=== PATIENT | female | born 1935 | race Caucasian/White ===

== ENCOUNTER 2023-08-28 10:40 | Emergency (ER) | payer MEDICARE, OTHER, SELFPAY ==
[2023-08-28 10:42] VITALS: BP 131/75
[2023-08-28] MEDS: AUGMENTIN 875 MG/125 MG 1 TABLET PO (11:42)
--- NOTE | 2023-08-28 11:42 | ED.GENMED ---
History of Present Illness
General
Chief Complaint: Musculo-Skeletal Complaint
Source: patient and spouse
Time Seen by Provider: 08/28/23 10:58
Travel History
Have you had any contact with someone who has COVID-19?: No
Do you have any symptoms of coronavirus? Fever > 100 degrees, chills, cough, shortness of breath, sore throat, loss of taste or smell, muscle aches, or headache?: No
History of Present Illness
History of Present Illness:
88-year-old female with past medical history of previous DVT, bowel obstruction and GERD presenting to the emergency department for 2 separate concerns. Patient's first concern is that while on a cruise ship about a week and a half ago patient fell
landing on her right shoulder. Patient had an x-ray done on the crew ship and was told she had a fracture of her shoulder but patient is unable to provide me with any further information about where the fracture was or what treatments were supposed
to be done afterwards notes that there was supposed to get an x-ray printout but this was never done. They did not make an appointment with an orthopedic doctor and decided to come here due to continued pain. Patient was given a sling but
states she does not like wearing the sling secondary concern of upon getting home patient was bit on the right anterior lower leg by her house. The cat is up-to-date on his vaccinations. Patient's states he cleaned the wound out some
erythema still persists. Patient has no other concerns.
Past History
Past History
ED Past Medical History: GERD, Hypercholesterolemia and Other (Osteoarthritis, DVT, bowel obstruction, hiatal hernia, Anxiety); Negative Asthma, HTN or NIDDM
ED Past Surgical History: Gynecological (D&C and tubal ligation) and Other (Bilateral cataract surgery)
Social History
Tobacco: Former smoker
Alcohol: None
Drug: None
Personal:
Living: with family
Employment: Retired
Family History
Family History: Negative Diabetes, Hypertension, Early CAD, Asthma or Cancer
Review of Systems
Review of Systems
All Other Systems: ROS reviewed and negative except as documented in HPI and ROS
Phy Exam
Physical Exam
Physical Exam:
GENERAL: Alert , in no apparent distress
EYE: conjunctiva clear
Head: Normocephalic atraumatic
NECK: Supple,
ENT: mmm.
LUNGS: no acute respiratory distress
NEUROLOGICAL: Alert and oriented
SKIN: Warm and dry, right anterior lower leg has 2 small puncture wounds with surrounding erythema. Mildly warm to the touch and tender. No streaking or lymphangitis.
MUSCULOSKELETAL: Right upper extremity: No obvious deformity, erythema, edema, ecchymosis, abrasions or lacerations. Unable to assess range of motion of the right shoulder secondary to pain. Tenderness over the humeral head on palpation.
Remainder of extremities within normal limits, neurovascularly intact and has normal range of motion.
PSYCH: Normal and appropriate interaction.
Scores
Heart Failure Risk
Heart Failure Risk Score: Not Applicable
Heart Score for Chest Pain Patients
STEMI patient?: Not applicable
Withdrawal Assessment of Alcohol
Withdrawal Assessment Completed?: Not applicable
Course
Orders/Labs/Results
Orders:
Orders
08/28/23 11:29
Amoxicillin 875 mg/Clav 125 mg [Augmentin 875 mg/125 mg] 1 tablet PO NOW STA
CR Shoulder, Trauma - Right Urgent
Comment:
Reason For Exam: fall, reportedly known fx
Vital Signs
Initial and Last Documented VS:
Initial Vital Signs
Temp Pulse Resp BP Pulse Ox
98.1 F 76 16 131/75 98
08/28/23 10:42 08/28/23 10:42 08/28/23 10:42 08/28/23 10:42 08/28/23 10:42
Last Documented Vital Signs
Temp Pulse Resp BP Pulse Ox
98.1 F 76 16 131/75 98
08/28/23 10:42 08/28/23 10:42 08/28/23 10:42 08/28/23 10:42 08/28/23 10:42
MDM/Problems Addressed
Differential Diagnosis Includes:
Proximal humerus fracture, clavicle fracture, scapular fracture, dislocation
Right lower extremity cellulitis from cat bite
MDM/Problems Addressed:
88-year-old female presenting emergency department for 2 separate concerns of right shoulder injury/known suspected fracture as well as cat bite to the right lower extremity resulting in mild cellulitis. Patient and are unaware as to what
was fractured in the right shoulder and do not have the x-rays from her cruise ship so we will reobtain x-ray to better evaluate. Encourage patient that she needs to wear the sling as long as she is up but does not need to use this while sleeping
or showering. Will provide patient and with information for outpatient orthopedist to follow-up with. Will also start patient on Augmentin for cat bite. I will notify patient's primary care provider to help expedite outpatient follow-up
for this week.
*Radiology
Radiology exam reviewed: preliminary read by ED provider (No fracture, degenerative changes, question calcific tendinitis)
*Pulse Oximetry
Patient hypoxic: no
*Critical Care Note
Total Time (30-74mins, 75-104mins- exclusive of procedures): Not Applicable
Patient Management
Discussion with other providers: PCP
Escalation/DeEscalation of care consider admission/obs:
Patient's x-ray was fracture. There were degenerative changes throughout and I do question calcific tendinitis as well. Advised patient remain in sling for comfort. Information for orthopedics was provided. I also encourage close follow-up with
primary care provider as well as send primary care provider message via [employer] to help expedite outpatient follow-up. Prescription for Augmentin sent to patient's pharmacy. Aware of return precautions emergency department. Stable for
discharge home.
ED Attending Note
-
Portions of this chart may have been created with voice recognition software.� Occasional wrong word or��sound alike� substitutions may have occurred due to the inherent limitations of voice recognition software.
Discharge Plan
Departure
Patient Disposition: Home (Routine Discharge)
Date of Disposition: 08/28/23
Time of Disposition: 12:08
Patient with high blood pressure during this ER visit?: No
Discharge Problem:
Right shoulder pain, Cellulitis of right anterior lower leg, Cat bite
Instructions: Animal Bites (DC), Shoulder Pain (DC)
Prescriptions:
New
amoxicillin-pot clavulanate 875-125 mg tablet
1 tab PO BID 7 Days Qty: 14 0RF
No Action
sertraline 100 MG tablet
50 mg PO DAILY
aspirin [Aspir-Low] 81 MG tablet,delayed release (DR/EC)
81 mg PO BID
etodolac [Lodine] 400 MG tablet
400 mg PO DAILY
calcium carbonate-vitamin D3 [Oyster Shell Calcium-Vit D3] 500 MG tablet
500 mg PO DAILY
[id number]-epa-fish oil [Bolckow 3] 1 EACH capsule
1 ea PO BID
rivaroxaban [Xarelto] 15 MG tablet
15 mg PO BID Qty: 42 0RF
Referrals:
Marv Mariscal MD [Family Provider] -
Interventions
Interventions:
*ED COVID-19 Vaccine History Last Done: 08/28/23 10:42
*Nursing Disposition Last Done: 08/28/23 12:25
ED-Musculoskeletal Assessment Last Done: 08/28/23 11:59
Discharge Date and Time
Discharge Date/Time: 08/28/23 12:26
== END 2023-08-28 12:26 | disposition home or self-care (01) ==
LOC: EMR 10:40
PROVIDERS: EMERGENCY PHYSICIAN Emergency Medicine; FAMILY PHYSICIAN Family Medicine
DX: M25.511 Pain in right shoulder (principal); L03.115 Cellulitis of right lower limb; W55.01XA Bitten by cat, initial encounter; K21.9 Gastro-esophageal reflux disease without esophagitis; E78.00 Pure hypercholesterolemia, unspecified; M19.90 Unspecified osteoarthritis, unspecified site; F41.9 Anxiety disorder, unspecified; Z86.718 Personal history of other venous thrombosis and embolism; Z87.891 Personal history of nicotine dependence; Z98.51 Tubal ligation status
CPT/HCPCS: 99283; 73030

== ENCOUNTER 2023-09-02 18:38 | Inpatient (IN) | payer MEDICARE, OTHER, SELFPAY ==
[2023-09-02 16:17] VITALS: BP 147/72
--- NOTE | 2023-09-02 17:36 | ED.SKININJ ---
HPI-Injury
General
Chief Complaint: Bite
Source: patient
Exam Limitations: none
Time Seen by Provider: 09/02/23 17:03
Nursing documentation reviewed up to this point in time: agreed with
Travel History
Have you had any contact with someone who has COVID-19?: No
Do you have any symptoms of coronavirus? Fever > 100 degrees, chills, cough, shortness of breath, sore throat, loss of taste or smell, muscle aches, or headache?: No
History of Present Illness-Injury
Is this injury a work related problem?: No
Is pt an associate of [facility]?: No
Initial Injury comments:
88-year-old female with past medical history of DVT currently on Xarelto, smoking history presenting to the emergency department today 5 days after getting bit by her cat on her right lower extremity initially started on Augmentin at the time
initially seen have some improvement but over the past 24 hours so she is seen worsening increased pain redness swelling warmth. Denies any systemic symptoms fevers nausea vomiting.
Past History
Past History
ED Past Medical History: GERD, Hypercholesterolemia and Other (Osteoarthritis, DVT, bowel obstruction, hiatal hernia, Anxiety); Negative Asthma, HTN or NIDDM
ED Past Surgical History: Gynecological (D&C and tubal ligation) and Other (Bilateral cataract surgery)
Social History
Tobacco: Former smoker
Alcohol: None
Drug: None
Personal:
Living: with family
Employment: Retired
Family History
Family History: Negative Diabetes, Hypertension, Early CAD, Asthma or Cancer
Review of Systems
Review of Systems
Allergies reviewed?: Yes
All Other Systems: ROS reviewed and negative except as documented in HPI and ROS
Phy Exam
Physical Exam
Physical Exam:
GENERAL: Alert , in no apparent distress
EYE: pupils equal and reactive
NECK: Supple, no significant adenopathy.
ENT: o/p clr, mmm.
CARDIAC: Regular rate and rhythm .
LUNGS: Clear breath sounds bilaterally, no acute respiratory distress, no wheezes/rales/rhonchi
ABDOMEN: Soft, without focal tenderness, no r/g, no cvat
NEUROLOGICAL: Alert and oriented, no focal neuro deficits
SKIN: Redness swelling warmth to the right lower extremity to the distal anterior gee roughly 10 cm in diameter tender to palpation throughout warm and dry, skin intact.
MUSCULOSKELETAL: No edema, well perfused.
PSYCH: Normal and appropriate interaction.
Course
Orders/Labs/Results
Orders:
Orders
09/02/23 Dinner
Regular
At Your Request: Full Participation
Does patient need a safe tray?: No
Reason for opting out of Cigarette Package Examiner order writing: Provider Decision
09/02/23 17:27
MetroNIDAZOLE 500 MG/100 ML [Flagyl 500 mg] 100 ml IV NOW
09/02/23 17:47
CBC/With Diff [Complete Blood Count/With Diff] Urgent
CMP [Comprehensive Metabolic Panel] Urgent
Blood Culture Q30M
[place] Source: Blood/Venous
Specimen Description:
09/02/23 17:57
Blood Culture Q30M
[place] Source: Blood/Venous
Specimen Description:
09/02/23 18:23
Admit/Transfer Patient As Directed
Co-Sign Provider:
Level of Care: Inpatient admission
Assign to:: Medical/Surgical
Physician / Group: tika del cid
Diagnosis: Worsening cat bite infection
Reason for Hospitalization: The cat is up-to-date on his vaccinations.
Expected length of stay greater than two midnights?: Yes
ELOS- Estimated Length of Stay in days: 2
I certify the patient meets the requirements for IP care: Yes
09/02/23 18:25
Code Status As Directed
Resuscitation Status: Full Code
09/02/23 20:15
Acetaminophen [Tylenol] 1,000 mg PO Q6HPRN PRN
Ampicillin/Sulbactam 3 G [Unasyn] 3 gm 0.9% Sodium Chloride 100 ml [Nss] 100 ml IV Q6H
Ondansetron Injectable [Zofran] 4 mg IV Q6HPRN PRN
Tramadol HCl [Ultram] 50 mg PO BIDPRN PRN
cycloSPORINE [Restasis 0.05% Ophthalmic Emulsion] 1 drops BOTH EYES Q12H
09/02/23 20:15
SURGICAL CONSULT Routine
Consulting Provider: David Patel
Was physician already notified: Yes
Activity As Directed
Activity Level: Ambulate
Vital Signs As Directed
Frequency: Per unit guidelines
Ot Eval And Treat Routine
Pt Eval And Treat Routine
Activity Level: Ambulate
09/02/23 22:00
Alprazolam [Xanax] 0.5 mg PO HS
09/03/23 06:00
Basic Metabolic Panel IN AM
Complete Blood Count/No Diff IN AM
Magnesium IN AM
09/03/23 08:00
Bupropion(24Hr)Extended Releas [WELLBUTRIN XL (24 hour extended release)] 150 mg PO DAILY
Calcium Carbonate/Vitamin D3 [Oscal 500 + D] 500 mg PO DAILY
Cyanocobalamin [Vitamin B-12] 1,000 mcg PO DAILY
Famotidine [Pepcid] 20 mg PO DAILY
Multivitamin [Theragran] 1 tablet PO DAILY
Sertraline HCl [Zoloft] 100 mg PO DAILY
Vit C/Vit E/Lutein/Min/Jackson-3 [Ocuvite Softgel] 1 cap PO DAILY
mirabegron [Myrbetriq] 50 mg PO DAILY
09/03/23 18:00
Rivaroxaban [Xarelto] 20 mg PO QPM
09/04/23 06:00
Basic Metabolic Panel IN AM
Complete Blood Count/No Diff IN AM
09/05/23 06:00
Basic Metabolic Panel IN AM
Complete Blood Count/No Diff IN AM
Abnormal Lab Results
09/02/23
17:47
RBC 3.98 L 10^6/uL
(4.20-5.40)
Hct 36.3 L %
(37.0-47.0)
MCH 31.9 H pg
(27.0-31.0)
ALT 40 H U/L
(0-35)
Alkaline Phosphatase 150 H U/L
(38-126)
09/02/23 17:47
09/02/23 17:47
Vital Signs
Initial and Last Documented VS:
Initial Vital Signs
Temp Pulse Resp BP Pulse Ox
97.6 F 64 20 147/72 98
09/02/23 16:17 09/02/23 16:17 09/02/23 16:17 09/02/23 16:17 09/02/23 16:17
Last Documented Vital Signs
Temp Pulse Resp BP Pulse Ox
97.6 F 64 20 140/78 97
09/02/23 16:17 09/02/23 16:17 09/02/23 16:17 09/02/23 18:40 09/02/23 18:40
MDM/Problems Addressed
MDM/Problems Addressed:
88-year-old female presenting to the emergency department today with concerns of worsening cellulitis to the right lower extremity at site of cat bite 5 days ago. Has been on but having worsening symptoms over the past 24 hours. Concern for failed
outpatient management plan for IV antibiotics and admission for monitoring. No evidence of systemic illness at this point.
*Critical Care Note
Total Time (30-74mins, 75-104mins- exclusive of procedures): Not Applicable
ED Attending Note
-
Portions of this chart may have been created with voice recognition software.� Occasional wrong word or��sound alike� substitutions may have occurred due to the inherent limitations of voice recognition software.
Discharge Plan
Departure
Patient Disposition: Admit
Date of Disposition: 09/02/23
Time of Disposition: 18:30
Admit to: Med/Surg
Admit to doctor: Tineo
Presentation/result/management discussed w/ accepting MD/DO: Hospitalist
Patient with high blood pressure during this ER visit?: No
Condition: Good
Covid-19: Not Applicable
Discharge Problem:
Cellulitis of leg
Interventions
Interventions:
*Risk Screen - Suicide Last Done: 09/02/23 17:30
*General Assessment Last Done: 09/02/23 17:30
ED- Fall Risk Assessment Last Done: 09/02/23 20:41
*Nursing Disposition Last Done: 09/02/23 20:41
ED-Skin Assessment Last Done: 09/02/23 17:30
Discharge Date and Time
Discharge Date/Time: 09/02/23 20:42
[2023-09-02] MEDS: FLAGYL 500 MG 100 IV (18:00)
[2023-09-02 18:06] LABS: % Basophils 0.5 % (0-2); % Eosinophils 0.9 % (0-6); % Immature Granulocytes 0.2 % (0-0.5); % Lymphocytes 27.3 % (20.5-51.1); % Monocytes 7.9 % (1.7-9.3); % Neutrophils 63.2 % (42.2-75.2); Absolute Eosinophils 0.1 10^3/uL (0-0.7); Absolute Lymphocytes 1.5 10^3/uL (1.2-3.4); Absolute Monocytes 0.4 10^3/uL (0.1-0.6); Absolute Neutrophils 3.5 10^3/uL (1.4-6.5); Hematocrit 36.3 % (37.0-47.0); Hemoglobin 12.7 g/dL (12.0-16.0); Mean Corpuscular Hgb 31.9 pg (27.0-31.0); Mean Corpuscular Volume 91.2 fL (81.0-99.0); Mean Platelet Volume 9.7 fL (7.4-10.4); Nucleated Red Blood Cells % 0 %; Platelet Count 330 10^3/uL (130-400); Red Blood Cell Count 3.98 10^6/uL (4.20-5.40); Red Cell Dist. Width 13.2 % (11.5-14.5); White Blood Cell Count 5.6 10^3/uL (4.8-10.8)
--- NOTE | 2023-09-02 18:08 | HPS.HSE ---
Family Physician
-
Family Physician: Marv Mariscal
Chief Complaint
-
Worsening cat bite infection
History of Present Illness
88-year-old female with a past medical history of GERD, esophageal stricture, hiatal hernia, anxiety/depression, and DVT on Xarelto presents with worsening cat bite infection on her right leg despite taking Augmentin for 2 days. Patient reports
that she was bitten by cat 7 days ago, and started having redness/swelling/pain on her right anterior gee 6 days ago. She went to the ER 5 days ago, and was prescribed Augmentin. Despite taking Augmentin, the erythema/edema has worsened. She
denies fever, denies chills. No chest pain, no shortness of breath. No nausea, no vomiting. No dysuria, no black or bloody stools.
Patient was on a cruise ship recently, and injured her right shoulder. Right shoulder x-rays done 08/28/2023 was negative for fracture or dislocation. Does show degenerative changes and soft tissue calcification suggestive of tendinitis or bursitis
versus small avulsion fracture off the greater tuberosity of the proximal right humerus.
Medical History
Past Medical History
Past Medical History: Reports Other
Additional Past Medical History:
Esophageal stricture, GERD, Hypercholesterolemia, Osteoarthritis, DVT, bowel obstruction, hiatal hernia, Anxiety
Past Surgical History: Reports Other
Additional Past Surgical History:
D&C, tubal ligation, Bilateral cataract surgery
Social History
Tobacco: Former Smoker
Alcohol: None
Drug: None
Personal:
Living: With Family
Family History
Family History: Not pertinent
Allergies / Home Medications
Allergies reflects when Allergies were last updated in [facility].
Home Medications with original date entered in [facility]
Allergy/Medication List:
Allergies
Allergy/AdvReac Type Severity Reaction Status Date / Time
codeine Allergy Nausea Verified 09/02/23 16:17
aspirin AdvReac upsets her Verified 09/02/23 16:17
stomach
Home Medications Table - record
�Medication �Instructions �Recorded �Confirmed
calcium carbonate 500 mg-vitamin 500 mg PO DAILY 05/03/12 09/02/23
D3 5 mcg (200 unit) tablet (Oyster
Shell Calcium-Vitamin D3)
sertraline 100 mg tablet 100 mg PO DAILY 05/03/12 09/02/23
amoxicillin 875 mg-potassium 1 tab PO BID 7 days #14 tabs 08/28/23 09/02/23
clavulanate 125 mg tablet
alprazolam 0.5 mg tablet (Xanax) 0.5 mg PO HS 09/02/23 09/02/23
bupropion HCl 150 mg 24 hr tablet, 150 mg PO DAILY 09/02/23 09/02/23
extended release (Wellbutrin XL)
cyanocobalamin (vitamin B-12) 1,000 mcg PO DAILY 09/02/23 09/02/23
1,000 mcg tablet
cyclosporine 0.05 % eye drops in a 1 drp BOTH EYES Q12H 09/02/23 09/02/23
dropperette (Restasis)
famotidine 20 mg tablet (Pepcid) 20 mg PO DAILY 09/02/23 09/02/23
mirabegron 50 mg tablet,extended 50 mg PO DAILY 09/02/23 09/02/23
release 24 hr (Myrbetriq)
rivaroxaban 20 mg tablet (Xarelto) 20 mg PO DAILY 09/02/23 09/02/23
therapeutic multivitamin 1 tab PO DAILY 09/02/23 09/02/23
vitamins A,C,H-fmwy-nlrzld 2,148 1 tab PO DAILY 09/02/23 09/02/23
mcg-113 mg-45 mg-17.4 mg tablet
(PreserVision AREDS)
Review of Systems
-
A 12 point ROS was completed and negative except as noted: Yes
Physical Exam
Vital Signs
Vital Signs
Temp Pulse Resp BP Pulse Ox
97.6 F 64 20 147/72 98
09/02/23 16:17 09/02/23 16:17 09/02/23 16:17 09/02/23 16:17 09/02/23 16:17
Physical Exam
General: No Apparent Distress
HEENT: NormoCephalic, Anicteric and Moist mucous membranes
Respiratory: Clear
Cardiac: S1/S2
GI: Soft, Non Tender, Non Distended and Normal Bowel Sounds
Musculoskeletal: Edema, Right Lower Extremity
Skin: Other (Anterior gee at the right lower extremity is erythematous with a small wound, tender to the touch, with associated edema)
Neuro: Awake, Alert and Oriented
Psych: Calm
Laboratory Results
-
09/02/23 17:47
Impression/Plan
-
HPI: 88-year-old female with a past medical history of GERD, esophageal stricture, hiatal hernia, anxiety/depression, and DVT on Xarelto presents with worsening cat bite infection on her right leg despite taking Augmentin for 2 days. Patient
reports that she was bitten by cat 7 days ago, and started having redness/swelling/pain on her right anterior gee 6 days ago. She went to the ER 5 days ago, and was prescribed Augmentin. Despite taking Augmentin, the erythema/edema has worsened.
She denies fever, denies chills. No chest pain, no shortness of breath. No nausea, no vomiting. No dysuria, no black or bloody stools.
Patient was on a cruise ship recently, and injured her right shoulder. Right shoulder x-rays done 08/28/2023 was negative for fracture or dislocation. Does show degenerative changes and soft tissue calcification suggestive of tendinitis or bursitis
versus small avulsion fracture off the greater tuberosity of the proximal right humerus.
#Worsening cat bite infection on right lower extremity
Failed 2 days of Augmentin
Status post Rocephin and Flagyl in the ER
Treat with IV Unasyn, Tylenol prn
#Recent right shoulder infection
Right shoulder x-rays done 08/28/2023 was negative for fracture or dislocation.
Does show degenerative changes and soft tissue calcification suggestive of tendinitis or bursitis versus small avulsion fracture off the greater tuberosity of the proximal right humerus.
Patient reports being told to wear a sling, but she does not like it
Consult PT/OT
#History of DVT
Continue Xarelto
#Gastroesophageal reflux disease
Continue PPI, Pepcid
#Anxiety/depression
Continue SSRI, Xanax, Wellbutrin
DVT prophylaxis�Xarelto
Full code
[2023-09-02 18:20] LABS: ALT (SGPT) 40 U/L (0-35); AST (SGOT) 31 U/L (14-36); Albumin 4.3 g/dl (3.5-5.0); Alkaline Phosphatase 150 U/L (38-126); Blood Urea Nitrogen 16 mg/dl (7-17); Carbon Dioxide 25 mmol/L (22-30); Chloride 100 mmol/L (98-107); Glucose 93 mg/dl (70-99); Potassium 4.4 mmol/L (3.5-5.1); Sodium 135 mmol/L (135-145); Total Bilirubin 0.5 mg/dl (0.2-1.3); Total Protein 7.1 g/dl (6.3-8.2); eGFR > 60.00
[2023-09-02 18:40] VITALS: BP 140/78
[2023-09-02] MEDS: ROCEPHIN 2000 MG IV (19:59)
[2023-09-02 20:25] VITALS: BP 140/71; BMI 29.6
--- NOTE | 2023-09-02 20:25 | PTCARENOTE ---
Patient received from the ER via stretcher. Patient helped into the room by staff. AAOx3, VSS. Patient complaining of no pain from the cat bite on RLE. RLE red/flushed and edematous. No current drainage. Patient oriented to the room and made
comfortable in bed. Instructed to ring for assistance.
[2023-09-02] MEDS: XANAX 0.5 MG PO (21:29)
[2023-09-02] MEDS: RESTASIS 0.05% OPHTHALMIC EMULSION 1 DROPS BOTH EYES (21:29)
[2023-09-02] MEDS: UNASYN IV (23:33)
[2023-09-02 23:55] VITALS: BP 117/56
[2023-09-03 03:30] VITALS: BP 120/54
[2023-09-03] MEDS: UNASYN IV ×3 (05:33→17:50)
[2023-09-03 07:20] VITALS: BP 129/70
--- NOTE | 2023-09-03 07:55 | W.PN.HOSP.TC ---
Today's Communication/Plan
-
see bold
Assessment / Plan
Assessment / Plan
HPI: 88-year-old female with a past medical history of GERD, esophageal stricture, hiatal hernia, anxiety/depression, and DVT on Xarelto presents with worsening cat bite infection on her right leg despite taking Augmentin for 2 days. Patient
reports that she was bitten by cat 7 days ago, and started having redness/swelling/pain on her right anterior gee 6 days ago. She went to the ER 5 days ago, and was prescribed Augmentin. Despite taking Augmentin, the erythema/edema has worsened.
She denies fever, denies chills. No chest pain, no shortness of breath. No nausea, no vomiting. No dysuria, no black or bloody stools.
Patient was on a cruise ship recently, and injured her right shoulder. Right shoulder x-rays done 08/28/2023 was negative for fracture or dislocation. Does show degenerative changes and soft tissue calcification suggestive of tendinitis or bursitis
versus small avulsion fracture off the greater tuberosity of the proximal right humerus.
#Worsening cat bite infection on right lower extremity
Failed 2 days of Augmentin
Status post Rocephin and Flagyl in the ER
Questionable area of fluctuance noted, general surgery consulted to see if there is anything to drain
Continue IV Unasyn, Tylenol prn
#Recent right shoulder infection
Right shoulder x-rays done 08/28/2023 was negative for fracture or dislocation.
Does show degenerative changes and soft tissue calcification suggestive of tendinitis or bursitis versus small avulsion fracture off the greater tuberosity of the proximal right humerus.
Patient reports being told to wear a sling, but she does not like it
Consult PT/OT
#History of DVT
Continue Xarelto
#Gastroesophageal reflux disease
Continue PPI, Pepcid
#Anxiety/depression
Continue SSRI, Xanax, Wellbutrin
DVT prophylaxis�Xarelto
Full code
Physical Exam
General: No acute distress
HEENT: Normocephalic, Atraumatic, EOMI, MMM
Respiratory: Clear to Auscultation bilaterally
Cardiac: Normal S1/S2, Regular Rate and Rhythm
GI: Soft, Nontender, Nondistended, Normal Bowel Sounds
Extremities: No Clubbing, Cyanosis, or Edema
Neuro: Nonfocal/Grossly Intact
Psych: Calm, Cooperative
Derm:
Right anterior lower gee with erythema and edema, improved from prior
Questionable area of fluctuance noted
Anticipated Discharge: 24 - 48 hours
Subjective/Interval History
-
Date of Service: September 03, 2023
Right lower extremity redness and pain improved. No fever, no vomiting.
Objective Data
-
Labs:
Laboratory Results
09/03/23
06:44
WBC Pending
Hgb Pending
Hct Pending
Plt Count Pending
Sodium Pending
Potassium Pending
Chloride Pending
Carbon Dioxide Pending
BUN Pending
Creatinine Pending
Glucose Pending
Calcium Pending
Vital Signs:
Vital Signs
Temp Pulse Resp BP Pulse Ox
97.8 F 66 16 120/54 93
09/03/23 03:30 09/03/23 03:30 09/03/23 03:30 09/03/23 03:30 09/03/23 03:30
I&O
09/02/23 09/03/23 09/04/23
06:59 06:59 06:59
Intake Total 580 / 580
Balance 580 / 580
[2023-09-03 08:20] LABS: Hematocrit 37.8 % (37.0-47.0); Hemoglobin 12.4 g/dL (12.0-16.0); Mean Corp Hgb Conc. 32.8 g/dL (33.0-37.0); Mean Corpuscular Hgb 31.3 pg (27.0-31.0); Mean Corpuscular Volume 95.5 fL (81.0-99.0); Mean Platelet Volume 9.9 fL (7.4-10.4); Platelet Count 316 10^3/uL (130-400); Red Blood Cell Count 3.96 10^6/uL (4.20-5.40); Red Cell Dist. Width 13.2 % (11.5-14.5); White Blood Cell Count 4.9 10^3/uL (4.8-10.8)
[2023-09-03 08:29] LABS: Blood Urea Nitrogen 11 mg/dl (7-17); Calcium 9.4 mg/dl (8.4-10.2); Carbon Dioxide 27 mmol/L (22-30); Chloride 104 mmol/L (98-107); Estimated Creatinine Clearance 43 ml/min; Glucose 90 mg/dl (70-99); Magnesium 2.1 mg/dl (1.6-2.3); Potassium 4.4 mmol/L (3.5-5.1); Sodium 136 mmol/L (135-145); eGFR > 60.00
[2023-09-03] MEDS: MYRBETRIQ EXTENDED RELEASE 50 MG PO (08:54)
[2023-09-03] MEDS: OSCAL 500 + D 500 MG PO (08:54)
[2023-09-03] MEDS: OCUVITE SOFTGEL 1 CAP PO (08:54)
[2023-09-03] MEDS: WELLBUTRIN XL (24 hour extended release) 150 MG PO (08:54)
[2023-09-03] MEDS: THERAGRAN 1 TABLET PO (08:55)
[2023-09-03] MEDS: RESTASIS 0.05% OPHTHALMIC EMULSION 1 DROPS BOTH EYES ×2 (08:55→20:21)
[2023-09-03] MEDS: PEPCID 20 MG PO (08:55)
[2023-09-03] MEDS: ZOLOFT 100 MG PO (08:55)
[2023-09-03] MEDS: VITAMIN B-12 1000 MCG PO (08:55)
[2023-09-03] MEDS: TYLENOL 1000 MG PO (09:25)
[2023-09-03 09:53] VITALS: PULSE 73; O2SAT 97
[2023-09-03 10:47] VITALS: BP 109/64; PULSE 74
--- NOTE | 2023-09-03 13:57 | CON.GS ---
Addendum entered and electronically signed by David Patel MD 09/03/23 14:13:
I saw and examined the patient.
The [employer]'s note was reviewed and I agree with the note.
Comment: 88F with localized mild soft tissue infection after cat bite. Failed outpt abx. Today feels improved. There is erythema on exam. There is no fluctuance or drainage. No indication for surgical intervention, rec abx tx. Pls call with ?s
Original Note:
Consultation
-
Date/Time Consultation Requested: 09/02/232014
Requesting Provider: Do
Medical History
-
Chief Complaint: erythema at cat bite
History of Present Illness:
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 She presented to the ED on 08/28/23 a few
days later as erythema was noted. She was provided with a prescription for Augmentin but notes no improvement and presented again for evaluation. She was admitted for IV antibiotics. The original site of the bite has a very small area of
slough/necrotic tissue with surrounding erythema and edema. There is no palpable fluctuance or drainage noted. She denies fevers or chills. She has no leukocytosis.
Past Medical History
Past Medical History: GERD and Other (DVT on Xarelto, sbo, hiatal hernia, esophageal stricture)
Past Surgical History: Gynecological (d&c, tubal ligation) and Other (cataracts)
Social History
Tobacco: Former Smoker
Alcohol: None
Personal:
Living: With Family
Family History
Family History: Reviewed & Not Pertinent
Allergies / Home Medications
Allergy/AdvReac Type Severity Reaction Status Date / Time
codeine Allergy Nausea Verified 09/02/23 16:17
aspirin AdvReac upsets her Verified 09/02/23 16:17
stomach
�Medication �Instructions �Recorded �Confirmed �Type
calcium carbonate 500 mg-vitamin 500 mg PO DAILY 05/03/12 09/02/23 History
D3 5 mcg (200 unit) tablet (Oyster
Shell Calcium-Vitamin D3)
sertraline 100 mg tablet 100 mg PO DAILY 05/03/12 09/02/23 History
amoxicillin 875 mg-potassium 1 tab PO BID 7 days #14 tabs 08/28/23 09/02/23 Rx
clavulanate 125 mg tablet
alprazolam 0.5 mg tablet (Xanax) 0.5 mg PO HS 09/02/23 09/02/23 History
bupropion HCl 150 mg 24 hr tablet, 150 mg PO DAILY 09/02/23 09/02/23 History
extended release (Wellbutrin XL)
cyanocobalamin (vitamin B-12) 1,000 mcg PO DAILY 09/02/23 09/02/23 History
1,000 mcg tablet
cyclosporine 0.05 % eye drops in a 1 drp BOTH EYES Q12H 09/02/23 09/02/23 History
dropperette (Restasis)
famotidine 20 mg tablet (Pepcid) 20 mg PO DAILY 09/02/23 09/02/23 History
mirabegron 50 mg tablet,extended 50 mg PO DAILY 09/02/23 09/02/23 History
release 24 hr (Myrbetriq)
rivaroxaban 20 mg tablet (Xarelto) 20 mg PO DAILY 09/02/23 09/02/23 History
therapeutic multivitamin 1 tab PO DAILY 09/02/23 09/02/23 History
vitamins A,C,Q-bfle-ycrquk 2,148 1 tab PO DAILY 09/02/23 09/02/23 History
mcg-113 mg-45 mg-17.4 mg tablet
(PreserVision AREDS)
Review of Systems
-
History Source: Patient
All other systems: Negative unless noted
A 10 point review of systems was completed, and was negative except as per HPI.
Physical Exam
Vital Signs
Temp Pulse Resp BP Pulse Ox
97.8 F 72 16 129/70 97
09/03/23 07:20 09/03/23 07:20 09/03/23 07:20 09/03/23 07:20 09/03/23 10:40
09/02/23 09/03/23 09/04/23
06:59 06:59 06:59
Actual Weight 75.835 kg
Body Mass Index (BMI) 29.6
Lab Results
09/03/23 06:44
09/03/23 06:44
WBC 4.9 10^3/uL (4.8-10.8) 09/03/23 06:44
Hgb 12.4 g/dL (12.0-16.0) 09/03/23 06:44
Hct 37.8 % (37.0-47.0) 09/03/23 06:44
Plt Count 316 10^3/uL (130-400) 09/03/23 06:44
Abs Immat Gran (auto) 0.0 10^3/uL (0-0.05) 09/02/23 17:47
Neutrophils % 63.2 % (42.2-75.2) 09/02/23 17:47
Physical Exam
General: Well Developed and No Apparent Distress
HEENT: Normocephalic and Moist Mucous Membranes
Respiratory: Non Labored Respirations
GI: Soft, Non Tender and Non Distended
Skin: Warm and Other (right gee with very small area of slough/necrotic tissue with surrounding erythema and edema)
Neuro: Awake, Alert and AO x 3
Psych: Calm
Data Reviewed
-
Labs: Labs Reviewed by me, Discussed with Physician and Discussed with Patient
Old Records: Reviewed
Assessment / Plan
-
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 The bite occurred over a week ago with subsequent erythema. She was prescribed Augmentin on 08/27 but notes not much benefit. Admitted for IV
antibiotics. The original site of the bite has a very small area of slough/necrotic tissue with surrounding erythema and edema. There is no palpable fluctuance or drainage noted. She denies fevers or chills. She has no leukocytosis. Blood cx
pending. There is some discomfort to the site.
No plans for surgical intervention, no palpable abscess present
Continue abx and nonoperative management as per primary team
Surgery to sign off, please call with questions or concerns
[2023-09-03 15:20] VITALS: BP 125/69
--- NOTE | 2023-09-03 15:21 | CM ---
Met with patient at the bedside; initial assessment completed
Pharmacy verified: [facility], [facility]
Patient reported that she lives with her in a split level home; 0 steps to enter; 6 steps between floors; powder room on 1st floor; 2nd Floor bath has tub w/shower; planning to install grab bars
PLOF: patient reports that she is independent with ambulation, ADLs and stairs; uses railings on the steps; goes to outpatient PT for shoulder injury; no longer driving
DME: none
SNF/Rehab/Home Health utilization history: none
Transportation: will provide ride home
Plan: discharge to home when medically stable. PT recommended home therapy; patient is agreeable; no agency preference; referral submitted to [facility]
[2023-09-03] MEDS: XARELTO 20 MG PO (17:51)
[2023-09-03] MEDS: XANAX 0.5 MG PO (21:29)
[2023-09-03 23:21] VITALS: BP 125/64
[2023-09-04] MEDS: UNASYN IV ×5 (00:11→23:20)
[2023-09-04] MEDS: TYLENOL 1000 MG PO ×2 (05:46→20:01)
[2023-09-04 08:17] LABS: Hematocrit 35.5 % (37.0-47.0); Hemoglobin 11.7 g/dL (12.0-16.0); Mean Corpuscular Volume 94.2 fL (81.0-99.0); Mean Platelet Volume 9.9 fL (7.4-10.4); Platelet Count 287 10^3/uL (130-400); Red Blood Cell Count 3.77 10^6/uL (4.20-5.40); Red Cell Dist. Width 13.2 % (11.5-14.5); White Blood Cell Count 5.3 10^3/uL (4.8-10.8)
[2023-09-04 08:31] VITALS: BP 117/67
[2023-09-04] MEDS: OSCAL 500 + D 500 MG PO (08:36)
[2023-09-04] MEDS: OCUVITE SOFTGEL 1 CAP PO (08:36)
[2023-09-04] MEDS: MYRBETRIQ EXTENDED RELEASE 50 MG PO (08:36)
[2023-09-04] MEDS: VITAMIN B-12 1000 MCG PO (08:37)
[2023-09-04] MEDS: WELLBUTRIN XL (24 hour extended release) 150 MG PO (08:37)
[2023-09-04] MEDS: PEPCID 20 MG PO (08:37)
[2023-09-04] MEDS: THERAGRAN 1 TABLET PO (08:37)
[2023-09-04] MEDS: RESTASIS 0.05% OPHTHALMIC EMULSION 1 DROPS BOTH EYES ×2 (08:37→19:54)
[2023-09-04] MEDS: ZOLOFT 100 MG PO (08:37)
--- NOTE | 2023-09-04 08:49 | W.PN.HOSP.TC ---
Today's Communication/Plan
-
Likely can be discharged tomorrow
Assessment / Plan
Assessment / Plan
HPI: 88-year-old female with a past medical history of GERD, esophageal stricture, hiatal hernia, anxiety/depression, and DVT on Xarelto presents with worsening cat bite infection on her right leg despite taking Augmentin for 2 days. Patient
reports that she was bitten by cat 7 days ago, and started having redness/swelling/pain on her right anterior gee 6 days ago. She went to the ER 5 days ago, and was prescribed Augmentin. Despite taking Augmentin, the erythema/edema has worsened.
She denies fever, denies chills. No chest pain, no shortness of breath. No nausea, no vomiting. No dysuria, no black or bloody stools.
Patient was on a cruise ship recently, and injured her right shoulder. Right shoulder x-rays done 08/28/2023 was negative for fracture or dislocation. Does show degenerative changes and soft tissue calcification suggestive of tendinitis or bursitis
versus small avulsion fracture off the greater tuberosity of the proximal right humerus.
#Worsening cat bite infection on right lower extremity
Failed 2 days of Augmentin
Status post Rocephin and Flagyl in the ER
Appreciate general surgery input, nothing to drain
Improving on IV Unasyn, Tylenol prn
Likely can be discharged tomorrow on augmentin with continued improvement
#Recent right shoulder infection
Right shoulder x-rays done 08/28/2023 was negative for fracture or dislocation.
Does show degenerative changes and soft tissue calcification suggestive of tendinitis or bursitis versus small avulsion fracture off the greater tuberosity of the proximal right humerus.
Patient reports being told to wear a sling, but she does not like it
PT/OT rec HH
#History of DVT
Continue Xarelto
#Gastroesophageal reflux disease
Continue PPI, Pepcid
#Anxiety/depression
Continue SSRI, Xanax, Wellbutrin
DVT prophylaxis�Xarelto
Full code
Total time spent to see the patient on the floor, examine the patient, review data and lab results, discuss treatment plan with patient, nursing staff around 35 minutes.
Physical Exam
General: No acute distress
HEENT: Normocephalic, Atraumatic, EOMI, MMM
Respiratory: Clear to Auscultation bilaterally
Cardiac: Normal S1/S2, Regular Rate and Rhythm
GI: Soft, Nontender, Nondistended, Normal Bowel Sounds
Extremities: No Clubbing, Cyanosis, or Edema
Neuro: Nonfocal/Grossly Intact
Psych: Calm, Cooperative
Derm:
Right anterior lower gee with erythema and edema, improved from prior
Anticipated Discharge: Within 24 hours
Subjective/Interval History
-
Date of Service: September 04, 2023
Denies nausea, vomiting. No chest pain, no shortness of breath. No fever. Right lower extremity leg pain continues to improve.
Objective Data
-
Labs:
Laboratory Results
09/04/23
07:29
WBC 5.3
Hgb 11.7 L
Hct 35.5 L
Plt Count 287
Vital Signs:
Vital Signs
Temp Pulse Resp BP Pulse Ox
97.7 F 71 18 117/67 95
09/04/23 08:31 09/04/23 08:31 09/04/23 08:31 09/04/23 08:31 09/04/23 08:31
I&O
09/03/23 09/04/23 09/05/23
06:59 06:59 06:59
Intake Total 580 / 580 1295 / 1295
Balance 580 / 580 1295 / 1295
[2023-09-04] MEDS: FLUSH (NSS) 1 FLUSH IV ×2 (12:13→17:50)
[2023-09-04 15:48] VITALS: BP 134/73
--- NOTE | 2023-09-04 15:54 | PTCARENOTE ---
Pt AAO x3, QUIJANO well, OOB to BR/OOB in chair; wilmar well. VSS. On room air- pulse ox 96%, no SOB noted. Abd soft, rounded, wilmar PO well. Rt lower leg reddened/sl tender; small scabbed areas intact. Voiding in BR without difficulty. Resting
comfortably at present, no c/o. Will continue to monitor.
[2023-09-04] MEDS: XARELTO 20 MG PO (17:49)
[2023-09-04] MEDS: XANAX 0.5 MG PO (21:53)
[2023-09-04 23:28] VITALS: BP 115/59
[2023-09-05] MEDS: UNASYN IV (05:49)
[2023-09-05 06:08] LABS: Hematocrit 35.2 % (37.0-47.0); Hemoglobin 11.7 g/dL (12.0-16.0); Mean Corp Hgb Conc. 33.2 g/dL (33.0-37.0); Mean Corpuscular Hgb 31.5 pg (27.0-31.0); Mean Corpuscular Volume 94.9 fL (81.0-99.0); Platelet Count 291 10^3/uL (130-400); Red Blood Cell Count 3.71 10^6/uL (4.20-5.40); Red Cell Dist. Width 13.3 % (11.5-14.5); White Blood Cell Count 5.4 10^3/uL (4.8-10.8)
--- NOTE | 2023-09-05 06:53 | W.PN.HOSP.TC ---
Addendum entered and electronically signed by Teodoro Mccarthy MD 09/06/23 09:50:
RLE Cellulitis due to cat bite wound, present on admission resolving
Addendum entered and electronically signed by Teodoro Mccarthy MD 09/05/23 12:07:
Correction to documentation
#Recent Right Shoulder Infection should read recent right shoulder trauma evaluated in ED 08/27 fracture/dislocation ruled out
patient has outpatient orthopedic appointment, recommended to keep
Original Note:
Today's Communication/Plan
-
discharge
Assessment / Plan
Assessment / Plan
HPI: 88-year-old female with a past medical history of GERD, esophageal stricture, hiatal hernia, anxiety/depression, and DVT on Xarelto presents with worsening cat bite infection on her right leg despite taking Augmentin for 2 days. Patient
reports that she was bitten by cat 7 days ago, and started having redness/swelling/pain on her right anterior gee 6 days ago. She went to the ER 5 days ago, and was prescribed Augmentin. Despite taking Augmentin, the erythema/edema has worsened.
She denies fever, denies chills. No chest pain, no shortness of breath. No nausea, no vomiting. No dysuria, no black or bloody stools.
Patient was on a cruise ship recently, and injured her right shoulder. Right shoulder x-rays done 08/28/2023 was negative for fracture or dislocation. Does show degenerative changes and soft tissue calcification suggestive of tendinitis or bursitis
versus small avulsion fracture off the greater tuberosity of the proximal right humerus.
#Worsening cat bite infection on right lower extremity
Failed 2 days of Augmentin
Status post Rocephin and Flagyl in the ER
Appreciate general surgery input, nothing to drain
Improved on IV Unasyn, Tylenol prn, completed 2 days inpatient
Medically stable, discharging on 7 more days of Augmentin
#Recent right shoulder infection
Right shoulder x-rays done 08/28/2023 was negative for fracture or dislocation.
Does show degenerative changes and soft tissue calcification suggestive of tendinitis or bursitis versus small avulsion fracture off the greater tuberosity of the proximal right humerus.
Patient reports being told to wear a sling, but she does not like it
PT/OT rec HH
#History of DVT
Continue Xarelto
#Gastroesophageal reflux disease
Continue PPI, Pepcid
#Anxiety/depression
Continue SSRI, Xanax, Wellbutrin
DVT prophylaxis�Xarelto
Full code
discussed with patient and her
Total Time Preparing Discharge __45 minutes including examination of the patient, summary of the hospital stay, instructions for continuing care to all relevant caregivers; and preparation of discharge records, prescriptions, and referral
forms if necessary.
Physical Exam
General: No acute distress
HEENT: Normocephalic, Atraumatic, EOMI, MMM
Respiratory: Clear to Auscultation bilaterally
Cardiac: Normal S1/S2, Regular Rate and Rhythm
GI: Soft, Nontender, Nondistended, Normal Bowel Sounds
Extremities: No Clubbing, Cyanosis, or Edema
Neuro: Nonfocal/Grossly Intact
Psych: Calm, Cooperative
Derm:
Right anterior lower gee with erythema and edema, improved from prior, small puss expressed from wound
Anticipated Discharge: Today
Subjective/Interval History
-
Date of Service: September 05, 2023
Seen and examined at bedside in no acute distress sitting up comfortably in bed with present during evaluation. Reports significant improvement in right lower ext wound, decreased erythema swelling, small amount of pus expressed from wound.
Patient overall reports feeling well, eager to go home.
Objective Data
-
Labs:
Laboratory Results
09/05/23
05:28
WBC 5.4
Hgb 11.7 L
Hct 35.2 L
Plt Count 291
Vital Signs:
Vital Signs
Temp Pulse Resp BP Pulse Ox
98.2 F 72 17 115/59 93
09/04/23 23:28 09/04/23 23:28 09/04/23 23:28 09/04/23 23:28 09/04/23 23:28
I&O
09/03/23 09/04/23 09/05/23
06:59 06:59 06:59
Intake Total 580 / 580 1295 / 1295 1440 / 1440
Balance 580 / 580 1295 / 1295 1440 / 1440
[2023-09-05 07:05] VITALS: BP 113/92
[2023-09-05] MEDS: TYLENOL 1000 MG PO (08:29)
[2023-09-05] MEDS: WELLBUTRIN XL (24 hour extended release) 150 MG PO (08:29)
[2023-09-05] MEDS: RESTASIS 0.05% OPHTHALMIC EMULSION 1 DROPS BOTH EYES (08:30)
[2023-09-05] MEDS: PEPCID 20 MG PO (08:30)
[2023-09-05] MEDS: ZOLOFT 100 MG PO (08:30)
[2023-09-05] MEDS: VITAMIN B-12 1000 MCG PO (08:30)
[2023-09-05] MEDS: MYRBETRIQ EXTENDED RELEASE 50 MG PO (08:30)
[2023-09-05] MEDS: OCUVITE SOFTGEL 1 CAP PO (08:30)
[2023-09-05] MEDS: OSCAL 500 + D 500 MG PO (08:30)
[2023-09-05] MEDS: THERAGRAN 1 TABLET PO (08:30)
--- NOTE | 2023-09-05 12:07 | W.DCSUMMARY ---
Discharge Summary
Discharge Data
Date of Admission: 09/02/23
Date of Discharge: 09/05/23
-
Pending Results: Yes
Additional Pending Results:
official Culture results
Hospital Course
88F GERD, esophageal stricture, hiatal hernia, anxiety/depression, and DVT on Xarelto p/w worsening cat bite infection on her right leg despite taking Augmentin for 2 days. Patient reports that she was bitten by cat 7 days ago, and started having
redness/swelling/pain on her right anterior gee 6 days ago. She went to the ER 5 days ago, and was prescribed Augmentin. Despite taking Augmentin, the erythema/edema has worsened. She denied fever, chills, chest pain, shortness of breath nausea,
vomiting, dysuria, black or bloody stools. Patient was on a cruise ship recently, and injured her right shoulder. Right shoulder x-rays done 08/28/2023 was negative for fracture or dislocation. Noted degenerative changes and soft tissue
calcification suggestive of tendinitis or bursitis versus small avulsion fracture off the greater tuberosity of the proximal right humerus. Worsening cat bite infection on right lower extremity, empiric Rocephin and Flagyl given in ED. surgery
evaluated noted nothing to drain. Improved on IV Unasyn, Tylenol prn, completed 2 days inpatient, on discharge patient was transitioned back to Augmentin to complete 7 more days. Medically stable, patient was discharged home with home services and
outpatient follow up recommendations.
Discharge Plan
-
Patient Disposition: Home with Home Care
Discharge Diagnosis/Procedures: Infected Cat Bite, Right Shoulder Pain
Condition: Fair
Diet: Regular
Activity: As tolerated
Driving Restrictions: As prior to admission
Bathing Restrictions: None
Blood Work: Please repeat CBC and CMP with primary care provider in 1 week of discharge
Other Services: VN, PT and OT
Activity Restrictions/Additional Instructions:
Please follow up with your primary care provider in 1 week of discharge and continue orthopedic follow up right shoulder pain.
Augmentin has been prescribed for 7 more days to continue through September 11, treatment for cat bite infection.
Please take medications as prescribed/recommended and follow up with primary care provider and/or other healthcare provider involved in your care for further adjustment to your medication regimen as necessary.
Instructions: Animal Bites (DC)
Referrals:
Marv Mariscal MD [Family Provider] - in one week
Prescriptions:
Continued
sertraline 100 MG tablet
100 mg PO DAILY
calcium carbonate-vitamin D3 [Oyster Shell Calcium-Vit D3] 500 MG tablet
500 mg PO DAILY
Xarelto 20 mg Tablet
20 mg PO DAILY
cyanocobalamin (vitamin B-12) 1,000 mcg Tablet
1,000 mcg PO DAILY
therapeutic multivitamin Tablet
1 tab PO DAILY
alprazolam [Xanax] 0.5 mg Tablet
0.5 mg PO HS
famotidine [Pepcid] 20 mg Tablet
20 mg PO DAILY
cyclosporine [Restasis] 0.05 % Dropperette
1 drp BOTH EYES Q12H
bupropion HCl [Wellbutrin XL] 150 mg Tablet Extended Release 24 Hr
150 mg PO DAILY
PreserVision AREDS 2,148 mcg-113 mg-45 mg-17.4mg Tablet
1 tab PO DAILY
Myrbetriq 50 mg Tablet Extended Release 24 Hr
50 mg PO DAILY
amoxicillin-pot clavulanate 875-125 mg tablet
1 tab PO BID 7 Days Qty: 14 0RF
Rx Instructions:
continue through September 11Enma then stop
Discharge Orders:
Discharge Patient (As Directed); Ordered 09/05/23
Ordered By: Teodoro Mccarthy
Discharge Date and Time
Discharge Date/Time: 09/05/23 12:59
Print Language: PORTUGUESE
--- NOTE | 2023-09-05 12:09 | CM ---
CM reviewed chart and noted dc order
Bedside meeting with pt and spouse
Plan remains home with [facility]
IMM verbally reviewed- copy provided
VN order on chart
[facility]/Maryjane aware of dc
Discharge Disposition- home with [facility]- spouse transport
[2023-09-05 12:24] VITALS: BP 135/73
--- NOTE | 2023-09-05 15:04 | VNURNOTE ---
Home Health Liaison spoke with patient and spouse by phone at 1500 to discuss [facility] nurse/therapy, visits, schedule and homebound status. Patient is agreeable and understands that visits at home will be 2-3 x per week to assess and teach medical
management.
Patient is aware that [facility] will contact them for start of care in 1-2 days after discharge from .
[facility] referral completed in [facility].
--- NOTE | 2023-09-05 15:47 | PN.CDI ---
CDI
- -
CDI:
Physician Documentation Request
Admit Date: 09/02/23 18:38
Dear Doctor Shari,
Clinical Indicators:
The diagnosis of cellulitis was documented on 09/01 in ED report, but is not noted in subsequent documentation.
09/02 Surgery consult, 'The original site of the bite has a very small area of slough/necrotic tissue with surrounding erythema and edema.'
09/04 PN, 'Reports significant improvement in right lower ext wound, decreased erythema swelling'
09/01- 09/04 Unasyn IV given; Augmentin ordered on discharge.
Please clarify the following:
RLE Cellulitis was present on admission and is now resolved.
RLE Cellulitis was ruled out
Other, please specify
Use of terms such as suspected, likely, concern for, or probable (associated with a specific diagnosis that is being evaluated, monitored, or treated as if it exists) are acceptable and can be coded in the inpatient setting, when documented at the
time of discharge.
Thank you,
JASS Nino RN
CDI Specialist
available via tiger text
Please use your independent medical judgment in providing your response.
== END 2023-09-05 12:59 | disposition home health service (06) | DRG 605 ==
LOC: 4 EAST ACU 18:38
PROVIDERS: Physician Assistant; ADMITTING PHYSICIAN Family Medicine; ATTENDING PHYSICIAN Internal Medicine; CONSULT PHYSICIAN Surgery; EMERGENCY PHYSICIAN Emergency Medicine; FAMILY PHYSICIAN Family Medicine
DX: S81.851A Open bite, right lower leg, initial encounter (principal); L03.115 Cellulitis of right lower limb; Z87.891 Personal history of nicotine dependence; W55.01XA Bitten by cat, initial encounter; Z79.01 Long term (current) use of anticoagulants; K21.9 Gastro-esophageal reflux disease without esophagitis; F32.A Depression, unspecified; F41.9 Anxiety disorder, unspecified; M25.511 Pain in right shoulder
CPT/HCPCS: 80048; 80053; 83735; 85025; 85027; 87040; 96374; 96375; 97110; 97116; 97162; 97166; 99284

== ENCOUNTER → 2023-09-11 16:17 | Outpatient (REF) | payer MEDICARE, OTHER, SELFPAY ==
[2023-09-11 19:47] LABS: Hematocrit 40.4 % (37.0-47.0); Hemoglobin 13.5 g/dL (12.0-16.0); Mean Corp Hgb Conc. 33.4 g/dL (33.0-37.0); Mean Corpuscular Hgb 31.6 pg (27.0-31.0); Mean Corpuscular Volume 94.6 fL (81.0-99.0); Mean Platelet Volume 10.7 fL (7.4-10.4); Platelet Count 304 10^3/uL (130-400); Red Blood Cell Count 4.27 10^6/uL (4.20-5.40); Red Cell Dist. Width 13.8 % (11.5-14.5); White Blood Cell Count 6.7 10^3/uL (4.8-10.8)
[2023-09-11 19:55] LABS: ALT (SGPT) 30 U/L (0-35); AST (SGOT) 34 U/L (14-36); Albumin 4.5 g/dl (3.5-5.0); Alkaline Phosphatase 140 U/L (38-126); Blood Urea Nitrogen 18 mg/dl (7-17); Calcium 10.2 mg/dl (8.4-10.2); Carbon Dioxide 27 mmol/L (22-30); Chloride 100 mmol/L (98-107); Glucose 89 mg/dl (70-99); Potassium 4.7 mmol/L (3.5-5.1); Sodium 134 mmol/L (135-145); Total Bilirubin 0.5 mg/dl (0.2-1.3); Total Protein 7.3 g/dl (6.3-8.2); eGFR > 60.00
[2023-09-11 20:01] LABS: Absolute Neutrophils -Man Diff 4.7 10^3/uL (1.4-6.5); Band Neutrophils 0 % (0-3); Lymphocytes 26 % (20-51); Segmented Neutrophils 71 % (42-75)
[2023-09-11 20:02] LABS: Eosinophils 1 % (0-6); Monocytes 2 % (2-9); Normal RBC Morphology Yes; Platelets Checked Yes; Total Cells Counted 100
== END ==
LOC: CLAB 16:17
PROVIDERS: ATTENDING PHYSICIAN Family Medicine
DX: S81.851D Open bite, right lower leg, subsequent encounter (principal)
CPT/HCPCS: 36415; 80053; 85027

== ENCOUNTER 2024-05-15 11:35 | Inpatient (IN) | payer MEDICARE, OTHER, SELFPAY ==
[2024-05-14] VITALS (7 sets, daily range): BP systolic 102–130; BP diastolic 50–106; BMI 27.8
[2024-05-14 15:01] LABS: % Basophils 0.3 % (0-2); % Eosinophils 0.8 % (0-6); % Immature Granulocytes 0.3 % (0-0.5); % Lymphocytes 26.4 % (20.5-51.1); % Monocytes 4.8 % (1.7-9.3); % Neutrophils 67.4 % (42.2-75.2); Absolute Eosinophils 0.1 10^3/uL (0-0.7); Absolute Lymphocytes 1.6 10^3/uL (1.2-3.4); Absolute Monocytes 0.3 10^3/uL (0.1-0.6); Hematocrit 42.5 % (37.0-47.0); Mean Corp Hgb Conc. 32.9 g/dL (33.0-37.0); Mean Platelet Volume 9.8 fL (7.4-10.4); Nucleated Red Blood Cells % 0 %; Platelet Count 235 10^3/uL (130-400); Red Blood Cell Count 4.38 10^6/uL (4.20-5.40); Red Cell Dist. Width 12.7 % (11.5-14.5)
[2024-05-14 15:25] LABS: ALT (SGPT) 35 U/L (0-35); AST (SGOT) 54 U/L (14-36); Albumin 4.5 g/dl (3.5-5.0); Alkaline Phosphatase 92 U/L (38-126); Blood Urea Nitrogen 20 mg/dl (7-17); Calcium 10.1 mg/dl (8.4-10.2); Carbon Dioxide 31 mmol/L (22-30); Chloride 102 mmol/L (98-107); Glucose 105 mg/dl (70-99); Lipase 93 U/L (23-300); Potassium 4.2 mmol/L (3.5-5.1); Sodium 139 mmol/L (135-145); Total Bilirubin 0.6 mg/dl (0.2-1.3); Total Protein 7.1 g/dl (6.3-8.2); eGFR > 60.00
[2024-05-14 15:31] LABS: Troponin I < 0.012 ng/ml
[2024-05-14 17:20] LABS: Urine Albumin Trace (Neg - Trace); Urine Bilirubin Negative (Negative); Urine Character Slightly Cloudy (Clear); Urine Color Amber; Urine Glucose Negative (Negative); Urine Ketone Negative (Negative); Urine Leukocyte 1+ (Negative); Urine Nitrite Negative (Negative); Urine Occult Blood Negative (Negative); Urine Specific Gravity 1.025 (<1.030); Urine Urobilinogen Negative (Neg - 1+)
[2024-05-14 17:45] LABS: Urine Calcium Oxalate Crystals Present
[2024-05-14 17:46] LABS: Urine Bacteria Few (Negative)
--- NOTE | 2024-05-14 17:55 | ED.GENMED ---
History of Present Illness
General
Chief Complaint: Abdominal Pain
Source: patient
Exam Limitations: none
Time Seen by Provider: 05/14/24 15:59
Nursing documentation reviewed up to this point in time: agreed with
History of Present Illness
History of Present Illness:
Patient to ED with complaint of right upper abd. pain. Symptoms started this AM. Denies fever/chills. No n/v/d. No prior history of same. Brought to ED by spouse for eval.
Past History
Past History
ED Past Medical History: GERD, Hypercholesterolemia and Other (Osteoarthritis, DVT, bowel obstruction, hiatal hernia, Anxiety); Negative Asthma, HTN or NIDDM
ED Past Surgical History: Gynecological (D&C and tubal ligation) and Other (Bilateral cataract surgery)
Social History
Tobacco: Former smoker
Alcohol: None
Drug: None
Personal:
Living: with family
Employment: Retired
Family History
Family History: Negative Diabetes, Hypertension, Early CAD, Asthma or Cancer
Review of Systems
Review of Systems
Allergies reviewed?: Yes
All Other Systems: ROS reviewed and negative except as documented in HPI and ROS
Constitutional: Reports no symptoms
EENT: Reports no symptoms
Respiratory: Reports no symptoms
Cardiac: Reports no symptoms
ABD/GI: Reports abdominal pain (RUQ abdominal pain)
: Reports no symptoms
Musculoskeletal: Reports no symptoms
Skin: Reports no symptoms
Neurological: Reports no symptoms
Psychiatric: Reports no symptoms
Phy Exam
General Physical Exam
General Presentation: moderate distress
General age: appears stated age
General Skin: warm and dry
General Habitus: normal
General Mental: alert
Cardiovascular Exam
Cardiovascular Exam: regular rate/rhythm and no edema
Pulmonary Exam
Pulmonary Exam: lungs clear and no respiratory distress
Gastrointestinal Exam
Gastrointestinal Exam: normal bowel sounds, soft, no organomegaly, non distended and guarding
Palpation: left upper quadrant: No tenderness, left lower quadrant: No tenderness, right upper quadrant: Moderate tenderness and right lower quadrant: No tenderness
Musculoskeletal Exam
Musculoskeletal Exam: full ROM and neuro vasc intact
Skin Exam
Skin Exam: normal color, warm/dry and no rash
Psychiatric Exam
Psychiatric Exam: normal mood/affect
Course
Orders/Labs/Results
Orders:
Orders
05/14/24 14:45
Electrocardiogram (*1) Urgent
Reason for Study: Abdominal Pain
EKG- Treatment ONCE
05/14/24 14:48
Complete Blood Count/With Diff Urgent
Comprehensive Metabolic Panel Urgent
Lipase Urgent
Troponin I Urgent
05/14/24 16:15
US Abdomen Complete/Upper Urgent
Comment:
Reason For Exam: RUQ abd. pain
05/14/24 16:57
Urinalysis Reflex To Culture Urgent
Date Specimen was Collected: 05/14/24
Time Specimen was Collected: 14:42
Urine Microscopic Reflex Cult Urgent
Urine Culture Urgent
[place] Source: U
Specimen Description:
Date Specimen was Collected: 05/14/24
Time Specimen was Collected: 14:42
05/14/24 18:01
HYDROmorphone [Dilaudid] 0.25 mg IV NOW STA
Ondansetron Injectable [Zofran] 4 mg IV NOW STA
05/14/24 18:02
0.9% Sodium Chloride 1000 ml [Nss] 1,000 ml IV BOLUS
05/14/24 21:37
Admit/Transfer Patient As Directed
Co-Sign Provider:
Level of Care: Observation services
Assign to:: Medical/Surgical
Physician / Group: [facility]/Hospitalist
Diagnosis: RUQ abd pain, gallstones biliary colic
Reason for Hospitalization: RUQ abd pain, gallstones biliary colic
PRN Pain Medication Management As Directed
May give lesser potent ordered pain med per pt: Yes
preference::
Protocol:: Medication orders for pain may be administered in a
manner that supports deferring to patient preference
when the pt is:
- Requesting an ordered lesser potent pain medication.
Least to most potent pain medications are defined
as: acetaminophen < NSAID < tramadol < opioids
(morphine, oxycodone, hydromorphone).
- Requesting a lesser dose of the same medication IF
ORDERED.
- Requesting a less intrusive route of administration
if both routes are prescribed by the provider (PO <
IV).
05/14/24 21:42
Code Status As Directed
Resuscitation Status: Full Code
05/14/24 23:00
Famotidine [Pepcid] 20 mg PO HS
Flush (0.9% Sodium Chloride) [Flush (Nss)] See Dose Instructions IV PER PROTOCOL
05/14/24 23:06
0.9% Sodium Chloride 1000 ml [Nss] 1,000 ml IV 75 mls/hr
Acetaminophen [Tylenol] 650 mg PO Q4HPRN PRN
Alprazolam [Xanax] 0.5 mg PO HS
Bisacodyl [Dulcolax] 10 mg RECTAL [id number] PRN
HYDROmorphone [Dilaudid] 0.5 mg IV Q4HPRN PRN
Ondansetron Injectable [Zofran] 4 mg IV Q6HPRN PRN
Polyethylene Glycol Powder [Miralax] 17 grams PO DAILYPRN PRN
cycloSPORINE [Restasis 0.05% Ophthalmic Emulsion] 1 drops BOTH EYES Q12
05/14/24 23:06
GASTROINTESTINAL CONSULT Routine
Consulting Provider: Becky Coello
Was physician already notified: Yes
Reason for consult: gallstones, biliary colic , 9 mm CBD, MRCP
Activity As Directed
Activity Level: With Assistance
Intake/ Output As Directed
Frequency: Per unit guidelines
Pneumatic Compression Sleeves As Directed
Type: Knee high
Vital Signs As Directed
Frequency: Per unit guidelines
DX Deep Vein Thrombosis Video Routine
05/15/24 05:59
MRI Abdomen [MR Abdomen W/o & W Contrast] Routine
Comment:
Reason For Exam: CBD dilation do with MRCP
Recent pill cam endoscopy?: No
05/15/24 Breakfast
NPO
Allow oral meds: Yes
Allow clear liquids: Sips of Clears
NPO with Ice Chips: Yes
05/15/24 06:36
Complete Blood Count/With Diff IN AM
Comprehensive Metabolic Panel IN AM
Direct Bilirubin Routine
Comment: ADD ON LFT
05/15/24 08:00
Bupropion(24Hr)Extended Releas [WELLBUTRIN XL (24 hour extended release)] 150 mg PO DAILY
Mirabegron Extended Release [Myrbetriq Extended Release] 50 mg PO DAILY
05/15/24 11:23
Inpatient/Observation Status Change [Level of Care Change] As Directed
Level of Care: Inpatient admission
Reason for Hospitalization: Elevated LFTs, right upper quadrant pain
Expected length of stay greater than two midnights?: Yes
ELOS- Estimated Length of Stay in days: 3
I certify the patient meets the requirements for IP care: Yes
05/15/24 18:00
Sertraline HCl [Zoloft] 100 mg PO QPM
05/16/24 05:09
Complete Blood Count/With Diff IN AM
Comprehensive Metabolic Panel IN AM
Abnormal Lab Results
05/14/24 05/14/24 05/15/24
14:48 16:57 06:36
WBC 2.9 L 10^3/uL
(4.8-10.8)
RBC 3.75 L 10^6/uL
(4.20-5.40)
Hct 35.9 L %
(37.0-47.0)
MCH 32.0 H pg 32.3 H pg
(27.0-31.0) (27.0-31.0)
MCHC 32.9 L g/dL
(33.0-37.0)
Absolute Lymphs (auto) 1.1 L 10^3/uL
(1.2-3.4)
Carbon Dioxide 31 H mmol/L
(22-30)
BUN 20 H mg/dl
(7-17)
Glucose 105 H mg/dl
(70-99)
AST 54 H U/L 869 H* U/L
(14-36) (14-36)
ALT 545 H* U/L
(0-35)
Total Protein 5.7 L g/dl
(6.3-8.2)
Albumin 3.4 L g/dl
(3.5-5.0)
Leukocyte Esterase Rfl 1+ A
(Negative)
Urine RBC 3-6 A /HPF
(0-2)
Urine Bacteria (Reflex) Few A
(Negative)
05/15/24 06:36
05/15/24 06:36
Vital Signs
Initial and Last Documented VS:
Initial Vital Signs
Temp Pulse Resp BP Pulse Ox
98.1 F 65 18 130/66 96
05/14/24 14:38 05/14/24 14:38 05/14/24 14:38 05/14/24 14:38 05/14/24 14:38
Last Documented Vital Signs
Temp Pulse Resp BP Pulse Ox
97.3 F 87 18 128/76 95
05/16/24 21:15 05/16/24 21:15 05/16/24 21:15 05/16/24 21:15 05/16/24 21:15
*Radiology
Radiology exam reviewed: radiology read reviewed
*Pulse Oximetry
Patient hypoxic: no
*Critical Care Note
Total Time (30-74mins, 75-104mins- exclusive of procedures): Not Applicable
Update Note
Update Note:
Patient to ED wtih suddent onset of RUQ abdominal pain. Symptoms started this AM. Afeberile. Labs reviewed. Sli elevatiom of AST otherwilse normal LFT's. US = gallstones wthout evidence of cholecystitis. CBD slightly enlarged at 9mm can not
rule out obstructions. Will admit to hospitalist service for abdominal pain. MRCP tomorrow.
ED Attending Note
-
Portions of this chart may have been created with voice recognition software.� Occasional wrong word or��sound alike� substitutions may have occurred due to the inherent limitations of voice recognition software.
Discharge Plan
Departure
Patient Disposition: Admit
Date of Disposition: 05/14/24
Time of Disposition: 18:01
Presentation/result/management discussed w/ accepting MD/DO: Hospitalist
Patient with high blood pressure during this ER visit?: No
Condition: Fair
Discharge Problem:
Abdominal pain
Interventions
Interventions:
*Risk Screen - Suicide Last Done: 05/14/24 14:38
*General Assessment Last Done: 05/14/24 14:38
*Neglect/Abuse Screening Last Done: 05/14/24 14:38
ED- Fall Risk Assessment Last Done: 05/14/24 18:08
*ED COVID-19 Vaccine History Last Done: 05/14/24 23:05
*Nursing Disposition Last Done: 05/14/24 23:59
NR-Xwtapf-Zxhoowrbkg Assessment Last Done: 05/14/24 18:08
Discharge Date and Time
Discharge Date/Time: 05/15/24 00:00
[2024-05-14] MEDS: ZOFRAN 4 MG IV (18:48)
[2024-05-14] MEDS: NSS 1000 IV (18:48)
[2024-05-14] MEDS: DILAUDID 0.25 MG IV (18:48)
--- NOTE | 2024-05-14 20:02 | HPS.HSE ---
Family Physician
-
Family Physician: Marv Mariscal
Chief Complaint
-
RUQ abdominal pain
History of Present Illness
The patient is an 88 yo woman with PMH significant for GERD, HLD, OA, DVT on Xarelto (2019 US negative for DVT), bowel obstruction, hiatal hernia, anxiety, who presents to ED due to upper abdominal pain on the right side, that started this morning.
She denies f/c/ns, no n/v/d. Dilaudid relieved pain in the ED. No other symptoms at this time. She has never had similar symptoms previously. Of note she is also c/o right shoulder pain from a rotator cuff tear right shoulder, being worked up OP.
ED txt:
IV Dilaudid, IV Zofran, IV fluids
Medical History
Past Medical History
Past Medical History: Reports GERD and Hypercholesterolemia
Additional Past Medical History:
Esophageal stricture, GERD, Hypercholesterolemia, Osteoarthritis, DVT, bowel obstruction, hiatal hernia, Anxiety
Past Surgical History: Reports Other
Additional Past Surgical History:
D&C, tubal ligation, Bilateral cataract surgery
Social History
Tobacco: Former Smoker
Alcohol: None
Drug: None
Personal:
Living: With Family
Family History
Family History: Not pertinent
Allergies / Home Medications
Allergies reflects when Allergies were last updated in [facility].
Home Medications with original date entered in [facility]
Allergy/Medication List:
Allergies
Allergy/AdvReac Type Severity Reaction Status Date / Time
codeine Allergy Nausea Verified 05/14/24 14:42
aspirin AdvReac upsets her Verified 05/14/24 14:42
stomach
Home Medications
calcium 500 mg (as carbonate)-vitamin D3 5 mcg (200 unit) tablet (Oyster Shell Calcium-Vitamin D3) 500 mg PO DAILY Supplement 05/03/12
sertraline 100 mg tablet 100 mg PO QPM depression/anxiety 05/03/12
alprazolam 0.5 mg tablet (Xanax) 0.5 mg PO HS anxiety 09/02/23
bupropion HCl 150 mg 24 hr tablet, extended release (Wellbutrin XL) 150 mg PO DAILY depression 09/02/23
cyanocobalamin (vitamin B-12) 1,000 mcg tablet 1,000 mcg PO DAILY Supplement 09/02/23
cyclosporine 0.05 % eye drops in a dropperette (Restasis) 1 drp BOTH EYES Q12H dry eyes 09/02/23
mirabegron 50 mg tablet,extended release 24 hr (Myrbetriq) 50 mg PO DAILY Urinary Issue 09/02/23
rivaroxaban 20 mg tablet (Xarelto) 20 mg PO QPM Blood Clot Prevention/Tx 09/02/23
therapeutic multivitamin 1 tab PO DAILY Supplement 09/02/23
vitamins A,C,D-ajmx-xrtxym 2,148 mcg-113 mg-45 mg-17.4 mg tablet (PreserVision AREDS) 1 tab PO BID Supplement 09/02/23
cholecalciferol (vitamin D3) 25 mcg (1,000 unit) tablet (Vitamin D3) 25 mcg PO DAILY 05/14/24
estradiol 0.01% (0.1 mg/gram) vaginal cream 1 appful vaginal MOWEFR 05/14/24
famotidine 40 mg tablet 40 mg PO HS 05/14/24
Review of Systems
-
A 12 point ROS was completed and negative except as noted: Yes
Physical Exam
Vital Signs
Vital Signs
Temp Pulse Resp BP Pulse Ox
98.1 F 66 15 125/106 91
05/14/24 14:38 05/14/24 18:01 05/14/24 18:01 05/14/24 19:35 05/14/24 19:35
Physical Exam
General: Well Developed, Well Nourished, No Apparent Distress, Comfortable and Conversant
HEENT: NormoCephalic, Anicteric and Moist mucous membranes
Respiratory: Clear
Cardiac: S1/S2 and Regular Rhythm
GI: Soft, Non Tender, Non Distended and Normal Bowel Sounds
Musculoskeletal: No Clubbing, No Cyanosis and No Edema
Skin: Warm and Dry
Neuro: AO x 3 and No Motor Deficits
Psych: Calm
Laboratory Results
-
05/14/24 14:48
05/14/24 14:48
Laboratory Results
Total Bilirubin 0.6 mg/dl (0.2-1.3) 05/14/24 14:48
AST 54 U/L (14-36) H 05/14/24 14:48
ALT 35 U/L (0-35) 05/14/24 14:48
Alkaline Phosphatase 92 U/L (38-126) 05/14/24 14:48
Troponin I < 0.012 ng/ml 05/14/24 14:48
Lipase 93 U/L (23-300) 05/14/24 14:48
Impression/Plan
-
IMPRESSION:The patient is an 88 yo woman with PMH significant for GERD, HLD, OA, DVT on Xarelto (2019 US negative for DVT), bowel obstruction, hiatal hernia, anxiety, who presents to ED due to upper abdominal pain on the right side, that started
this morning. She denies f/c/ns, no n/v/d. Dilaudid relieved pain in the ED. No other symptoms at this time. She has never had similar symptoms previously. Of note she is also c/o right shoulder pain from a rotator cuff tear right shoulder, being
worked up OP.
ED txt:
IV Dilaudid, IV Zofran, IV fluids
#Biliary colic, gallstones, no evidence for acute cholecystitis, concern for possible CBD stone, CBD 9 mm
-US = gallstones without evidence of cholecystitis. CBD slightly enlarged at 9mm can not rule out obstructions.
-GI consultation appreciated
-NPO, gentle IV hydration
-IV anti-emetics prn, pain meds prn
-CMP in am, CBC am
-MRCP
#DVT , history of
-last US in 2019 was negative-will hold Xarelto for now, and restart pending GI evaluation tomorrow if no procedure planned
Additional medication history:
#Esophageal stricture
#GERD
-continue famotidine
#Hypercholesterolemia
#Osteoarthritis
#Hx bowel obstruction,
#Hx hiatal hernia,
#Anxiety
-wellbutrin
-xanax
DVT proph-PCDs
Full Code
[2024-05-15 00:05] VITALS: BP 131/66; BMI 27.0
--- NOTE | 2024-05-15 00:30 | PTCARENOTE ---
Received patient from ED via stretcher. Medsurg orders. VSS> afebrile, HR 67, RR 18, BP 131/66, pox 94% room air. No c/o pain. PMH and medications reviewed by this RN with patient. Plan of care discussed. Patient oriented to room. Call [facility] within
reach.
[2024-05-15] MEDS: PEPCID 20 MG PO ×2 (00:34→21:27)
[2024-05-15] MEDS: XANAX 0.5 MG PO ×2 (00:34→21:28)
[2024-05-15] MEDS: RESTASIS 0.05% OPHTHALMIC EMULSION 1 DROPS BOTH EYES ×3 (00:35→21:27)
[2024-05-15] MEDS: NSS 1000 IV (00:36)
[2024-05-15 06:50] LABS: % Basophils 0.7 % (0-2); % Eosinophils 2.1 % (0-6); % Monocytes 8.9 % (1.7-9.3); % Neutrophils 52.3 % (42.2-75.2); Absolute Eosinophils 0.1 10^3/uL (0-0.7); Absolute Lymphocytes 1.1 10^3/uL (1.2-3.4); Absolute Monocytes 0.3 10^3/uL (0.1-0.6); Absolute Neutrophils 1.5 10^3/uL (1.4-6.5); Hematocrit 35.9 % (37.0-47.0); Hemoglobin 12.1 g/dL (12.0-16.0); Mean Corp Hgb Conc. 33.7 g/dL (33.0-37.0); Mean Corpuscular Hgb 32.3 pg (27.0-31.0); Mean Corpuscular Volume 95.7 fL (81.0-99.0); Mean Platelet Volume 10.1 fL (7.4-10.4); Nucleated Red Blood Cells % 0 %; Platelet Count 186 10^3/uL (130-400); Red Blood Cell Count 3.75 10^6/uL (4.20-5.40); Red Cell Dist. Width 12.7 % (11.5-14.5); White Blood Cell Count 2.9 10^3/uL (4.8-10.8)
[2024-05-15 07:17] LABS: ALT (SGPT) 545 U/L (0-35); Albumin 3.4 g/dl (3.5-5.0); Alkaline Phosphatase 122 U/L (38-126); Blood Urea Nitrogen 14 mg/dl (7-17); Calcium 9.1 mg/dl (8.4-10.2); Carbon Dioxide 28 mmol/L (22-30); Chloride 107 mmol/L (98-107); Estimated Creatinine Clearance 46 ml/min; Glucose 86 mg/dl (70-99); Potassium 4.4 mmol/L (3.5-5.1); Sodium 140 mmol/L (135-145); Total Bilirubin 0.7 mg/dl (0.2-1.3); Total Protein 5.7 g/dl (6.3-8.2); eGFR > 60.00
[2024-05-15 07:25] LABS: AST (SGOT) 869 U/L (14-36)
[2024-05-15 08:04] VITALS: BP 109/67
[2024-05-15] MEDS: MYRBETRIQ EXTENDED RELEASE 50 MG PO (09:15)
[2024-05-15] MEDS: WELLBUTRIN XL (24 hour extended release) 150 MG PO (09:15)
--- NOTE | 2024-05-15 10:01 | CON.GI ---
Consultation
-
Date/Time Consultation Requested: 05/14/2024,05:59
Date/Time Consultation Performed: 05/15/2024,10:10
Requesting Provider: Tiffani Walter
Performing Provider: Becky Coello
Reason for Consultation: Gallstones/Cholecystiis vs choledocholithiasis
Medical History
Chief Complaint / HPI
Chief Complaint: Abdominal pain
History of Present Illness:
Patient is a very pleasant 88 yo woman with PMH significant for GERD, HLD, OA, DVT on Xarelto (2019 US negative for DVT), bowel obstruction, hiatal hernia, anxiety, who was in her usual state of health yesterday and was at a store with her
Jairo when she had pain in the epigastric region sudden in onset,that was severe 8/10 in intensity,progressive,non-radiating,achy in nature and they had to leave the store and got to the ER.She says she never had any pain like that before.It was not
associated with any nausea,vomiting,bloating,fever,chills,palpitations,Sob or chest pain.
She denies any previous episodes,any relation of pain to meals,any fatty food intolerance.She is a former smoker and had almost 4 kg weight loss over 6 months.She cooks dinner at home and sometimes go out for dinner.She denies any bowel habit
changes,any melena,blood in stools,vomiting,indigestion or swallowing difficulties.She takes tylenol on and off for aches and pains but denies use of any NSAIDs.
She has had an endoscopy and colonoscopy in 2011.
Past Medical History
Past Medical History: GERD, Hypercholesterolemia and Other (Osteoarthritis, DVT, bowel obstruction, hiatal hernia, Anxiety,Esophageal stricture,rotator cuff tear right shoulder, being worked up OP.)
Past Surgical History: Gynecological (D&C, tubal ligation) and Other (Bilateral cataract surgery)
Social History
Tobacco: Former Smoker
Alcohol: None
Drug: None
Personal:
Living: With Family
Family History
Family History: Reviewed & Not Pertinent
Allergies / Home Medications
Allergy/AdvReac Type Severity Reaction Status Date / Time
codeine Allergy Nausea Verified 05/14/24 14:42
aspirin AdvReac upsets her Verified 05/14/24 14:42
stomach
�Medication �Instructions �Recorded
calcium 500 mg (as 500 mg PO DAILY Supplement 05/03/12
carbonate)-vitamin D3 5 mcg (200
unit) tablet (Oyster Shell
Calcium-Vitamin D3)
sertraline 100 mg tablet 100 mg PO QPM depression/anxiety 05/03/12
alprazolam 0.5 mg tablet (Xanax) 0.5 mg PO HS anxiety 09/02/23
bupropion HCl 150 mg 24 hr tablet, 150 mg PO DAILY depression 09/02/23
extended release (Wellbutrin XL)
cyanocobalamin (vitamin B-12) 1,000 mcg PO DAILY Supplement 09/02/23
1,000 mcg tablet
cyclosporine 0.05 % eye drops in a 1 drp BOTH EYES Q12H dry eyes 09/02/23
dropperette (Restasis)
mirabegron 50 mg tablet,extended 50 mg PO DAILY Urinary Issue 09/02/23
release 24 hr (Myrbetriq)
rivaroxaban 20 mg tablet (Xarelto) 20 mg PO QPM Blood Clot 09/02/23
Prevention/Tx
therapeutic multivitamin 1 tab PO DAILY Supplement 09/02/23
vitamins A,C,C-qamr-nltwoa 2,148 1 tab PO BID Supplement 09/02/23
mcg-113 mg-45 mg-17.4 mg tablet
(PreserVision AREDS)
cholecalciferol (vitamin D3) 25 25 mcg PO DAILY 05/14/24
mcg (1,000 unit) tablet (Vitamin
D3)
estradiol 0.01% (0.1 mg/gram) 1 appful vaginal MOWEFR 05/14/24
vaginal cream
famotidine 40 mg tablet 40 mg PO HS 05/14/24
Review of Systems
-
All other systems: A 12 pt ROS was Negative except as stated above in HPI
Vital Signs
Temp Pulse Resp BP Pulse Ox
97.7 F 66 20 109/67 95
05/15/24 08:04 05/15/24 08:04 05/15/24 08:04 05/15/24 08:04 05/15/24 08:04
Physical Exam
Exam
General: Other (A very pleasant *8 yr old female sitting comfortably in bed,feels well and is in no distress)
HEENT: Anicteric and Moist Mucous Membranes
Respiratory: Clear and Other (No wheezes ,ronchi or rales,)
Cardiac: S1/S2 and Regular Rhythm
GI: Soft, Non Tender and Normal Bowel Sounds
Genito-urinary: No Costovertebral Tender
Musculoskeletal: Other (Bite owens on right leg from her cat that she was admitted for in the past)
Skin: Warm
Neuro: Oriented and No Motor Deficits
Psych: Calm and Other (pleasant and cooperative)
Results
WBC 2.9 10^3/uL (4.8-10.8) L 05/15/24 06:36
Hgb 12.1 g/dL (12.0-16.0) 05/15/24 06:36
Hct 35.9 % (37.0-47.0) L 05/15/24 06:36
MCV 95.7 fL (81.0-99.0) 05/15/24 06:36
Plt Count 186 10^3/uL (130-400) D 05/15/24 06:36
Absolute Neuts (auto) 1.5 10^3/uL (1.4-6.5) 05/15/24 06:36
Sodium 140 mmol/L (135-145) 05/15/24 06:36
Potassium 4.4 mmol/L (3.5-5.1) 05/15/24 06:36
Chloride 107 mmol/L (98-107) 05/15/24 06:36
Carbon Dioxide 28 mmol/L (22-30) 05/15/24 06:36
BUN 14 mg/dl (7-17) 05/15/24 06:36
Creatinine 0.8 mg/dL (0.6-1.0) 05/15/24 06:36
Calcium 9.1 mg/dl (8.4-10.2) 05/15/24 06:36
Total Bilirubin 0.7 mg/dl (0.2-1.3) 05/15/24 06:36
AST 869 U/L (14-36) H* 05/15/24 06:36
ALT 545 U/L (0-35) H* 05/15/24 06:36
Alkaline Phosphatase 122 U/L (38-126) 05/15/24 06:36
Lipase 93 U/L (23-300) 05/14/24 14:48
Diagnostic Image Results:
US Abdomen Complete/Upper 05/14/2024
Indication:RUQ abd. pain.
IMPRESSION:
1. Cholelithiasis without sonographic evidence for acute cholecystitis.
2. Borderline common bile duct dilatation for patient age. Cannot definitively rule out a component of biliary obstruction. Consider MRCP for further evaluation as clinically indicated.
3. Slightly increased echogenicity in the liver, compatible with underlying hepatocellular disease, which most commonly relates to mild fatty infiltration of the liver
Prior GI Procedures:
EGD:
09/14/2011 [facility]
Upper GI endoscopy
Indications: Dysphagia, Heartburn
Impression: - Benign-appearing esophageal stricture. Dilated with 16
mm Savary dilator..
- Normal upper third of esophagus, middle third of
esophagus and lower third of esophagus. - Multiple
random biopsies were obtained to check for eosinophic
esophagitis.
- Widely patent Schatzki ring.
- Hiatus hernia.
- Mild antral gastritis. This was biopsied.
- Normal examined duodenum. Biopsies were taken with a
cold forceps for evaluation of celiac disease.
Colonoscopy:
09/14/2011 [facility]
Procedure: Colonoscopy
Indications: Screening for colorectal malignant neoplasm, Rectal pain
Findings:
A few small-mouthed diverticula were found in the sigmoid colon.
Non-bleeding internal hemorrhoids were found during retroflexion and
were small. No other significant abnormalities were identified in a
careful examination of the remainder of the colon.
Assessment / Plan
-
IMPRESSION
Patient is a very pleasant 88 yo woman with PMH significant for GERD, HLD, OA, DVT on Xarelto (2019 US negative for DVT), bowel obstruction, hiatal hernia, anxiety, admitted for sudden onset,severe, achy epigastric pain with gallstones and 9mm CBD.
Currently reports no pain
Afebrile with no issues at the moment
Lfts raised
lipase normal
trop.I normal
Evidence of Cholelithiasis on Abdominal ultrasound
CBD 9mm
MRI planned to better assess the Choledocholithiasis
ASSESSMENT/PLAN
AST ALT Alkaline Phosphatase
05/14/2024 54�H 35
05/15/2024 869�H*�� 545�H*�� 140�H
Continue to trend Lfts and WBCs
Follow MRI abdomen/pelvis report
If CBD stone present,can remove endoscopically
Patient does not want any kind of intervention at this time
Explained to patianni and her Jairo that she might have future episodes if the gallstones remain untreated
Patient is currently Npo,can allow clear liquids once MRI rules out any CBD stones
DVT proph-SCDs
Full Code
-
-
Thank you for consultation and allowing me to participate in the patient's care. Please call the unified communications architect GI physician during the after hours with any questions or concerns.
--- NOTE | 2024-05-15 11:18 | W.PN.HOSP.TC ---
Today's Communication/Plan
-
Monitor vital signs and see plan
LFTs elevated
MRI pending
GI following
Assessment / Plan
Assessment / Plan
General: Well Developed, Well Nourished, No Apparent Distress, Comfortable and Conversant
HEENT: NormoCephalic, Anicteric and Moist mucous membranes
Respiratory: Clear
Cardiac: S1/S2 and Regular Rhythm
GI: Soft, Non Tender, Non Distended and Normal Bowel Sounds
Musculoskeletal: No Clubbing, No Cyanosis and No Edema
Skin: Warm and Dry
Neuro: AO x 3 and No Motor Deficits
Psych: Calm
Biliary colic, gallstones, no evidence for acute cholecystitis, concern for possible CBD stone, CBD 9 mm
-US = gallstones without evidence of cholecystitis. CBD slightly enlarged at 9mm can not rule out obstructions.
-GI consultation appreciated
-NPO, gentle IV hydration
-IV anti-emetics prn, pain meds prn
CMP with elevated LFTs this morning
Denies any pain, suspect might of passed stone
#DVT , history of
-last US in 2019 was negative-will hold Xarelto for now, and restart pending GI evaluation if no procedure planned
Additional medication history:
#Esophageal stricture
#GERD
-continue famotidine
#Hypercholesterolemia
#Osteoarthritis
#Hx bowel obstruction,
#Hx hiatal hernia,
#Anxiety
-wellbutrin
-xanax
DVT proph-Scd;s
Full Code
Anticipated Discharge: 24 - 48 hours
Subjective/Interval History
-
Date of Service: May 15, 2024
denies pain
Objective Data
-
Labs:
Laboratory Results
05/15/24
06:36
WBC 2.9 L
Hgb 12.1
Hct 35.9 L
Plt Count 186 D
Sodium 140
Potassium 4.4
Chloride 107
Carbon Dioxide 28
BUN 14
Creatinine 0.8
Glucose 86
Calcium 9.1
Total Bilirubin 0.7
AST 869 H*
ALT 545 H*
Alkaline Phosphatase 122
Vital Signs:
Vital Signs
Temp Pulse Resp BP Pulse Ox
97.7 F 66 20 109/67 95
05/15/24 08:04 05/15/24 08:04 05/15/24 08:04 05/15/24 08:04 05/15/24 08:04
I&O
05/14/24 05/15/24 05/16/24
06:59 06:59 06:59
Intake Total 487.5 / 487.5
Balance 487.5 / 487.5
[2024-05-15 14:36] LABS: Direct Bilirubin 0.3 mg/dl (0.0-0.4)
[2024-05-15 15:44] VITALS: BP 118/73
--- NOTE | 2024-05-15 15:59 | CON.GS ---
Consultation
-
Requesting Provider: Mika
Performing Provider: Amanda
Reason for Consultation: Abd pain
Medical History
-
Chief Complaint: Abd pain
History of Present Illness:
88 F with acute onset upper abd pain that began yesterday late in the morning. She did not eat breakfast. The pain did radiate to her back. At some point yesterday afternoon the pain resolved and currently she has no pain. She denies f/c/n/v, denies
changes to stool/urine color. She takes xarelto, last dose 05/13 jabari.
Past Medical History
Past Medical History: Other (GERD, Hypercholesterolemia and Other (Osteoarthritis, DVT, bowel obstruction, hiatal hernia, Anxiety,Esophageal stricture,rotator cuff tear right shoulder)
Past Surgical History: Other ( Gynecological (D&C, tubal ligation) and Other (Bilateral cataract surgery))
Social History
Tobacco: Non-Smoker
Alcohol: None
Drug: None
Family History
Family History: Reviewed & Noncontributory
Allergies / Home Medications
Allergy/AdvReac Type Severity Reaction Status Date / Time
codeine Allergy Nausea Verified 05/14/24 14:42
aspirin AdvReac upsets her Verified 05/14/24 14:42
stomach
�Medication �Instructions �Recorded �Confirmed �Type
calcium 500 mg (as 500 mg PO DAILY Supplement 05/03/12 05/14/24 History
carbonate)-vitamin D3 5 mcg (200
unit) tablet (Oyster Shell
Calcium-Vitamin D3)
sertraline 100 mg tablet 100 mg PO QPM depression/anxiety 05/03/12 05/14/24 History
alprazolam 0.5 mg tablet (Xanax) 0.5 mg PO HS anxiety 09/02/23 05/14/24 History
bupropion HCl 150 mg 24 hr tablet, 150 mg PO DAILY depression 09/02/23 05/14/24 History
extended release (Wellbutrin XL)
cyanocobalamin (vitamin B-12) 1,000 mcg PO DAILY Supplement 09/02/23 05/14/24 History
1,000 mcg tablet
cyclosporine 0.05 % eye drops in a 1 drp BOTH EYES Q12H dry eyes 09/02/23 05/14/24 History
dropperette (Restasis)
mirabegron 50 mg tablet,extended 50 mg PO DAILY Urinary Issue 09/02/23 05/14/24 History
release 24 hr (Myrbetriq)
rivaroxaban 20 mg tablet (Xarelto) 20 mg PO QPM Blood Clot 09/02/23 05/14/24 History
Prevention/Tx
therapeutic multivitamin 1 tab PO DAILY Supplement 09/02/23 05/14/24 History
vitamins A,C,W-fjab-vrcvpa 2,148 1 tab PO BID Supplement 09/02/23 05/14/24 History
mcg-113 mg-45 mg-17.4 mg tablet
(PreserVision AREDS)
cholecalciferol (vitamin D3) 25 25 mcg PO DAILY 05/14/24 05/14/24 History
mcg (1,000 unit) tablet (Vitamin
D3)
estradiol 0.01% (0.1 mg/gram) 1 appful vaginal MOWEFR 05/14/24 05/14/24 History
vaginal cream
famotidine 40 mg tablet 40 mg PO HS 05/14/24 05/14/24 History
Review of Systems
-
A 10 point review of systems was completed, and was negative except as per HPI.
Physical Exam
Vital Signs
Temp Pulse Resp BP Pulse Ox
98.3 F 72 16 118/73 95
05/15/24 15:44 05/15/24 15:44 05/15/24 15:44 05/15/24 15:44 05/15/24 15:44
05/14/24 05/15/24 05/16/24
06:59 06:59 06:59
Actual Weight 69.031 kg
Body Mass Index (BMI) 27.0
Lab Results
05/15/24 06:36
05/15/24 06:36
WBC 2.9 10^3/uL (4.8-10.8) L 05/15/24 06:36
Hgb 12.1 g/dL (12.0-16.0) 05/15/24 06:36
Hct 35.9 % (37.0-47.0) L 05/15/24 06:36
Plt Count 186 10^3/uL (130-400) D 05/15/24 06:36
Abs Immat Gran (auto) 0.0 10^3/uL (0-0.05) 05/15/24 06:36
Neutrophils % 52.3 % (42.2-75.2) 05/15/24 06:36
Physical Exam
General: Well Developed and No Apparent Distress
HEENT: Normocephalic and Anicteric
GI: Soft, Non Distended and Tender (mild ttp with deep palp to RUQ)
Skin: Warm and Dry
Neuro: AO x 3
Psych: Calm
Data Reviewed
-
Ultrasound: Image Personally Visualized and interpreted, Report Reviewed by me, Discussed with Physician, Discussed with Patient and Discussed with Family
MRI: Image Personally Visualized and interpreted, Report Reviewed by me, Discussed with Physician, Discussed with Patient and Discussed with Family
Labs: Labs Reviewed by me, Discussed with Physician, Discussed with Patient and Discussed with Family
Assessment / Plan
-
88F with biliary colic vs passed stone
AFVSS, pain free today with mild ttp on deep palp to RUQ
No leukocytosis, no left shift, AST/ALT elevated today (increased from yesterday)
US with stones without stigmata of ACC
MRI without choledocholithiasis
I had a long discussion with the pt about surgery. I advised that most likely without surgery she would have more episodes in the future. She prefers to avoid it for now if possible.
Plan for PO challenge this jabari
If pain recurs with eating or otherwise, would tentatively plan for lap CCY tomorrow (NPO@MN to preserve the option of surgery)
If she does well and labs improve, can DC home
I advised her in that case if she would like to she can f/u in our office for further discussions about surgery
[2024-05-15] MEDS: NSS IV (16:11)
--- NOTE | 2024-05-15 16:24 | CM ---
Met with pt and her at bedside
Pt reports she lives with her in a split-level home; no steps to enter, 12 step to 2nd fl
Independent with ADL's, some assist around home. Ambulates independently
DME - rolling walker, single point cane, wheel chair
SNF - denies past hx
HH - denies
PCP -Marv Mariscal
Pharm - Mike
Plan - anticipate home no needs
[2024-05-15] MEDS: ZOLOFT 100 MG PO (18:02)
[2024-05-15 22:35] VITALS: BP 116/55
[2024-05-16] VITALS (10 sets, daily range): BP systolic 108–133; BP diastolic 52–76
[2024-05-16] MEDS: NSS IV ×2 (01:09→14:45)
--- NOTE | 2024-05-16 04:16 | DOWNTIME ---
There was a [employer] Downtime on 05/16/2024 from 0200 to 05/16/2024 at 0325 . Downtime documentation of patient's care, including medication administrations, has been reconciled in the electronic record per guidelines. Refer to the
patient's paper chart under the miscellaneous tab to see printed paper medication records and downtime forms.
[2024-05-16 06:26] LABS: % Basophils 0.3 % (0-2); % Immature Granulocytes 0.3 % (0-0.5); % Lymphocytes 42.7 % (20.5-51.1); % Monocytes 11.2 % (1.7-9.3); % Neutrophils 43.5 % (42.2-75.2); Absolute Eosinophils 0.1 10^3/uL (0-0.7); Absolute Lymphocytes 1.5 10^3/uL (1.2-3.4); Absolute Monocytes 0.4 10^3/uL (0.1-0.6); Absolute Neutrophils 1.6 10^3/uL (1.4-6.5); Hematocrit 36.7 % (37.0-47.0); Hemoglobin 12.3 g/dL (12.0-16.0); Mean Corp Hgb Conc. 33.5 g/dL (33.0-37.0); Mean Corpuscular Hgb 32.2 pg (27.0-31.0); Mean Corpuscular Volume 96.1 fL (81.0-99.0); Mean Platelet Volume 10.8 fL (7.4-10.4); Nucleated Red Blood Cells % 0 %; Platelet Count 194 10^3/uL (130-400); Red Blood Cell Count 3.82 10^6/uL (4.20-5.40); Red Cell Dist. Width 12.9 % (11.5-14.5); White Blood Cell Count 3.6 10^3/uL (4.8-10.8)
[2024-05-16 06:52] LABS: ALT (SGPT) 418 U/L (0-35); AST (SGOT) 482 U/L (14-36); Albumin 3.6 g/dl (3.5-5.0); Alkaline Phosphatase 172 U/L (38-126); Blood Urea Nitrogen 15 mg/dl (7-17); Calcium 8.8 mg/dl (8.4-10.2); Carbon Dioxide 27 mmol/L (22-30); Chloride 105 mmol/L (98-107); Estimated Creatinine Clearance 53 ml/min; Glucose 93 mg/dl (70-99); Sodium 139 mmol/L (135-145); Total Bilirubin 0.4 mg/dl (0.2-1.3); Total Protein 5.8 g/dl (6.3-8.2); eGFR > 60.00
[2024-05-16] MEDS: RESTASIS 0.05% OPHTHALMIC EMULSION 1 DROPS BOTH EYES (07:48)
[2024-05-16] MEDS: MYRBETRIQ EXTENDED RELEASE 50 MG PO (07:48)
[2024-05-16] MEDS: WELLBUTRIN XL (24 hour extended release) 150 MG PO (07:48)
--- NOTE | 2024-05-16 08:45 | W.PN.GS2 ---
Addendum entered and electronically signed by Kal Garcia MD 05/16/24 10:48:
Reviewed with patient and her who is now at bedside. After our discussions they are in agreement to proceed with cholecystectomy for definitive management of symptomatic cholelithiasis/acute biliary colic. Operative procedure was again
fully reviewed in detail the patient as previously outlined confirming informed consent.
Patient on OR schedule. Await availability of room.
Original Note:
Today's Communication / Plan
-
`
Assessment / Plan
-
Assessment: 88-year-old female with probable acute biliary colic/symptomatic cholelithiasis.
Reviewed with patient and her via phone call indications for cholecystectomy for definitive management of symptomatic cholelithiasis. We discussed risk for recurrent biliary colic is likely somewhere between 40 to 60% over time. While the
patient is 88 years old she does not have any significant underlying cardiovascular, pulmonary or additional comorbidities to significantly increase her operative risk. Advised she is of appropriate operative risk to consider and recommend
cholecystectomy.
Laparoscopic cholecystectomy with intraoperative cholangiogram was reviewed in detail including the operative technique, alternative treatment options, benefits and potential risks of surgery such as but not limited to bleeding, infectious and wound
related complications, iatrogenic injury to surrounding viscera and typical postoperative recovery pending operative findings. Any of the patient's or her 's concerns or questions were fully addressed.
Plan: Patient would like to further discuss with her when he arrives to see her in person this morning.
I have tentatively added her onto the OR schedule for lap juvenal cholangiogram today as she seems to be leaning towards the preference of pursuing surgery rather than following gallstones expectantly.
Subjective Data
-
Date of Service: May 16, 2024
Patient feeling well. Ate dinner last night without exacerbation of abdominal pain. No nausea, no vomiting.
Objective Data
-
Intake and Output
05/15/24 05/16/24 05/17/24
06:59 06:59 06:59
Intake Total 487.5 / 487.5 640 / 640
Balance 487.5 / 487.5 640 / 640
Intake:
Oral fluids 640 / 640
IV fluids (Total) 487.5 / 487.5
Other:
Number of approximated MODERATE 1
amounts of urine
Number of approximated LARGE 1 1
amounts of urine
Vital Signs
Temp Pulse Resp BP Pulse Ox
97.8 F 65 18 122/71 96
05/16/24 07:47 05/16/24 07:47 05/16/24 07:47 05/16/24 07:47 05/16/24 07:47
Lab Results
05/16/24 05:09
05/16/24 05:09
Calcium 8.8 mg/dl (8.4-10.2) 05/16/24 05:09
Total Bilirubin 0.4 mg/dl (0.2-1.3) 05/16/24 05:09
Direct Bilirubin Cancelled 05/15/24 12:23
AST 482 U/L (14-36) H 05/16/24 05:09
ALT 418 U/L (0-35) H 05/16/24 05:09
Alkaline Phosphatase 172 U/L (38-126) H 05/16/24 05:09
Total Protein 5.8 g/dl (6.3-8.2) L 05/16/24 05:09
Albumin 3.6 g/dl (3.5-5.0) 05/16/24 05:09
Physical Exam
-
NAD AAOx3
ABD: Soft, nondistended, minimal tenderness in the epigastrium and right upper quadrant. No rebound, no guarding.
--- NOTE | 2024-05-16 09:47 | W.PN.HOSP.TC ---
Today's Communication/Plan
-
to OR today for lap juvenal, IOC
Assessment / Plan
Assessment / Plan
General: Well Developed, Well Nourished, No Apparent Distress, Comfortable and Conversant
HEENT: NormoCephalic, Anicteric and Moist mucous membranes
Respiratory: Clear
Cardiac: S1/S2 and Regular Rhythm
GI: Soft, Non Tender, Non Distended and Normal Bowel Sounds
Musculoskeletal: No Clubbing, No Cyanosis and No Edema
Skin: Warm and Dry
Neuro: AO x 3 and No Motor Deficits
Psych: Calm
Biliary colic, gallstones, no evidence for acute cholecystitis, concern for possible CBD stone, CBD 9 mm
-US = gallstones without evidence of cholecystitis. CBD slightly enlarged at 9mm can not rule out obstructions.
-GI consultation appreciated
-NPO, gentle IV hydration
- IV anti-emetics prn, pain meds prn
- CMP with improved LFTs
- GS following; for lap juvenal with IOC today. EKG NSR. no cardiopulmonary symptoms. Low to intermediate risk patient, no additional testing indicated (RCRI score 0, 3.9% risk of MACE)
#DVT , history of
-last US in 2019 was negative-will hold Xarelto for now, and restart pending GI evaluation if no procedure planned
Additional medication history:
#Esophageal stricture
#GERD
-continue famotidine
#Hypercholesterolemia
#Osteoarthritis
#Hx bowel obstruction,
#Hx hiatal hernia,
#Anxiety
-wellbutrin
-xanax
DVT proph-Scds
Full Code
Anticipated Discharge: 24 - 48 hours
Subjective/Interval History
-
Date of Service: May 16, 2024
feels well
ate dinner ok
agreeable to OR, would like to address GB now
Objective Data
-
Labs:
Laboratory Results
05/16/24
05:09
WBC 3.6 L
Hgb 12.3
Hct 36.7 L
Plt Count 194
Sodium 139
Potassium 4.0
Chloride 105
Carbon Dioxide 27
BUN 15
Creatinine 0.7
Glucose 93
Calcium 8.8
Total Bilirubin 0.4
AST 482 H
ALT 418 H
Alkaline Phosphatase 172 H
Vital Signs:
Vital Signs
Temp Pulse Resp BP Pulse Ox
97.8 F 65 18 122/71 96
05/16/24 07:47 05/16/24 07:47 05/16/24 07:47 05/16/24 07:47 05/16/24 07:47
I&O
05/15/24 05/16/24 05/17/24
06:59 06:59 06:59
Intake Total 487.5 / 487.5 640 / 640
Balance 487.5 / 487.5 640 / 640
Data Reviewed
-
Total Time Spent with Patient (in minutes): 42
Labs: Labs Reviewed by me
--- NOTE | 2024-05-16 12:52 | W.PN.GI.CBS2 ---
Today's Communication / Plan
-
for CCY per surgery
Assessment / Plan
-
1.acute onset of epigastric and right upper quadrant pain radiating to the back most likely was related to biliary colic and she most likely passed a stone since her pain has markedly improved. she had significantly elevated transaminases but her
bili is normal and mild elevated ALP. acute hepatitis panel- P, transaminases are trending down, noted input from surgery she is scheduled for cholecystectomy with IOC today. Her MRCP was negative for choledocholithiasis. Last dose of Xarelto was
on 1210 AM
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 Given her age hold on EUS for now repeat MRI in 1 to 2 years
3. GERD on famotidine as outpatient been doing well
Follow-up as outpatient for MRI plus or minus EUS for the pancreatic cysts depending on patient wishes if she wants to proceed with workup for the pancreatic cystic lesions
Will sign off and will be available as needed
Subjective
Subjective
Date of Service: May 16, 2024
No further pain LFTs are trending down noted input from surgery for cholecystectomy today
Objective
Data Reviewed
Laboratory Data:
Laboratory Results
05/16/24 05:09
05/16/24 05:09
Laboratory Results
Total Bilirubin 0.4 mg/dl (0.2-1.3) 05/16/24 05:09
AST 482 U/L (14-36) H 05/16/24 05:09
ALT 418 U/L (0-35) H 05/16/24 05:09
Alkaline Phosphatase 172 U/L (38-126) H 05/16/24 05:09
Lipase 93 U/L (23-300) 05/14/24 14:48
Vital Signs and I&O:
Vital Signs
Temp Pulse Resp BP Pulse Ox
97.8 F 65 18 122/71 96
05/16/24 07:47 05/16/24 07:47 05/16/24 07:47 05/16/24 07:47 05/16/24 07:47
I&O
05/15/24 05/16/24 05/17/24
06:59 06:59 06:59
Intake Total 487.5 / 487.5 640 / 640
Balance 487.5 / 487.5 640 / 640
05/15/24 MRI WITH MRCP
IMPRESSION:
Distended gallbladder, with gallstones. Trace pericholecystic fluid. Cannot exclude acute cholecystitis in the proper clinical setting.
The common bile duct is considered within normal limits in size, 7.5 mm, without evidence to suggest choledocholithiasis.
Mild extrinsic impression along the ventral margin of the common bile duct in the pancreatic head secondary to pancreatic head 6.7 mm complex cystic structure. Additional elongated 6.9 mm complex cystic structure is present in the pancreatic neck.
Nonspecific. 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 Consider follow-up surveillance in 2 years. Alternatively, this may be assessed with endoscopic ultrasound if indicated.below
Physical Exam
Physical Exam
Cardiology: Normal Sinus Rhythm
Pulmonary: Clear
GI: Soft, Non Distended, Non Tender and Normal Bowel Sounds
--- NOTE | 2024-05-16 15:56 | W.SUR.PREOP ---
Pre-Operative Surgical Note
-
I have examined this patient prior to the performance of the scheduled procedure.
The patient's condition is unchanged from the time of the current History and
Physical and the patient is able to undergo the scheduled procedure.
--- NOTE | 2024-05-16 16:11 | CM ---
Chart reviewed
Pt for OR today for cholecystectomy today
CM will follow for post op needs
Plan - anticipate home no needs
--- NOTE | 2024-05-16 18:02 | W.IMMPOSTOP ---
Addendum entered and electronically signed by Kal Garcia MD 06/03/24 13:03:
#[id number]
Original Note:
Surgical Immed Post Op Note
-
Primary Surgeon: Radha
Assisting Surgeon: Denise Lucas
Pre-op Diagnosis: Acute biliary colic/symptomatic cholelithiasis
Post-op Diagnosis: Acute biliary colic/symptomatic cholelithiasis
Procedure Performed: Laparoscopic cholecystectomy with intraoperative cholangiogram
Anesthesia Type: GETA +0.25% Marcaine
Specimen / Cultures: Gallbladder/none
Estimated Blood Loss: 10 mL
Complications: None immediate
Operative Findings: Physiologically distended gallbladder with some edema. No adhesions to gallbladder. Gallbladder with numerous stones. Anterior and posterior cystic artery identified and controlled with hemoclips. Cystic duct isolated and
controlled with hemoclips. Intraoperative cholangiogram performed and confirm normal biliary anatomy. Disruption of gallbladder wall from grasper. Any spilled stones were evacuated and right upper quadrant/surgical field was irrigated with 2 L of
saline to confirm completely clear return and no residual stones.
Plan: Low-fat diet as tolerated
Hold therapeutic anticoagulation for 72 hours postop
Patient's updated postoperatively in surgical waiting area.
--- NOTE | 2024-05-16 19:10 | PTCARENOTE ---
Pt. returning from PACU, extremely drowsy but arousable to verbal stimuli. Vital signs stable, safety maintained, at bedside.
[2024-05-16 19:34] LABS: Hepatitis B Surface Antigen Negative (Negative)
[2024-05-16 19:51] LABS: Hepatitis B Surface Antibody Negative; Hepatitis C Antibody Negative (Negative)
[2024-05-16] MEDS: TYLENOL 650 MG PO (21:19)
[2024-05-16] MEDS: ANESTHETIC LOZENGE 1 LOZENGE PO (21:38)
[2024-05-16] MEDS: ZOLOFT PO (22:04)
[2024-05-16] MEDS: XANAX PO (22:04)
[2024-05-16] MEDS: PEPCID PO (22:04)
[2024-05-16] MEDS: RESTASIS 0.05% OPHTHALMIC EMULSION BOTH EYES (22:04)
[2024-05-17 03:37] VITALS: BP 109/73
[2024-05-17] MEDS: NSS IV (05:35)
[2024-05-17 07:48] VITALS: BP 106/55
[2024-05-17] MEDS: MYRBETRIQ EXTENDED RELEASE 50 MG PO (07:49)
[2024-05-17] MEDS: RESTASIS 0.05% OPHTHALMIC EMULSION 1 DROPS BOTH EYES (07:49)
[2024-05-17] MEDS: WELLBUTRIN XL (24 hour extended release) 150 MG PO (07:49)
--- NOTE | 2024-05-17 07:57 | W.PN.GS2 ---
Addendum entered and electronically signed by Kal Garcia MD 05/17/24 08:19:
Patient seen and examined with surgical FINANCIAL SERVICES PROFESSIONAL. Agree with documented progress note
Mild right sided abdominal discomfort/soreness at surgical sites. Otherwise denies abdominal pain.
Waiting to order breakfast, no nausea, no vomiting
AFVSS
NAD AAOx3
ABD: Soft, nondistended, mild tenderness to palpation at incision sites. Incisions with glue dressings. No drainage, no openings, no significant ecchymosis.
A/P: POD #1 status post lap juvenal with cholangiogram
Doing well postop
Low-fat diet as tolerated
Stable for discharge from surgical standpoint
Therapeutic anticoagulation/Xarelto should be held until Monday evening 05/19/2024 -discharge med rec form updated
Original Note:
Today's Communication / Plan
-
dispo planning
Assessment / Plan
-
Assessment: 88-year-old female with acute biliary colic/symptomatic cholelithiasis.
POD #1 lap juvenal
Following expected post operative course
AFVSS
Plan:
LFD
Analgesics prn, change to PO
OOB/Ambulate
IS while awake
Hold AC. Ok to resume Xarelto for her evening dose on 05/19
Ok for discharge from surgical standpoint
Subjective Data
-
Date of Service: May 17, 2024
Patient seen and examined at bedside with Dr. Garcia. Denies n/v. Awaiting breakfast. Some incisional soreness but otherwise not in much pain.
Objective Data
-
Intake and Output
05/16/24 05/17/24 05/18/24
06:59 06:59 06:59
Intake Total 640 / 640 740 / 740
Balance 640 / 640 740 / 740
Intake:
Oral fluids 640 / 640 240 / 240
IV fluids (Total) 500 / 500
Normosol 100 / 100
IV piggybacks 0 / 0
Other:
Number of approximated MODERATE 1 2
amounts of urine
Number of approximated LARGE 1
amounts of urine
Vital Signs
Temp Pulse Resp BP Pulse Ox
98.4 F 75 16 106/55 95
05/17/24 07:48 05/17/24 07:48 05/17/24 07:48 05/17/24 07:48 05/17/24 07:48
Calcium 8.8 mg/dl (8.4-10.2) 05/16/24 05:09
Total Bilirubin 0.4 mg/dl (0.2-1.3) 05/16/24 05:09
Direct Bilirubin Cancelled 05/15/24 12:23
AST 482 U/L (14-36) H 05/16/24 05:09
ALT 418 U/L (0-35) H 05/16/24 05:09
Alkaline Phosphatase 172 U/L (38-126) H 05/16/24 05:09
Total Protein 5.8 g/dl (6.3-8.2) L 05/16/24 05:09
Albumin 3.6 g/dl (3.5-5.0) 05/16/24 05:09
Physical Exam
-
NAD AAOx3
ABD: Soft, nondistended, minimal tenderness near incisions. No rebound, no guarding.
Incisions well approximated with intact glue
[2024-05-17 08:13] LABS: Hematocrit 37.4 % (37.0-47.0); Hemoglobin 12.5 g/dL (12.0-16.0); Mean Corp Hgb Conc. 33.4 g/dL (33.0-37.0); Mean Corpuscular Hgb 32.1 pg (27.0-31.0); Mean Corpuscular Volume 96.1 fL (81.0-99.0); Mean Platelet Volume 10.4 fL (7.4-10.4); Platelet Count 202 10^3/uL (130-400); Red Blood Cell Count 3.89 10^6/uL (4.20-5.40); Red Cell Dist. Width 12.8 % (11.5-14.5); White Blood Cell Count 4.8 10^3/uL (4.8-10.8)
[2024-05-17 08:48] LABS: ALT (SGPT) 272 U/L (0-35); AST (SGOT) 215 U/L (14-36); Albumin 3.5 g/dl (3.5-5.0); Alkaline Phosphatase 154 U/L (38-126); Blood Urea Nitrogen 14 mg/dl (7-17); Carbon Dioxide 27 mmol/L (22-30); Chloride 103 mmol/L (98-107); Estimated Creatinine Clearance 53 ml/min; Glucose 96 mg/dl (70-99); Potassium 4.6 mmol/L (3.5-5.1); Sodium 138 mmol/L (135-145); Total Bilirubin 0.3 mg/dl (0.2-1.3); Total Protein 5.9 g/dl (6.3-8.2); eGFR > 60.00
[2024-05-17 09:01] VITALS: BP 146/63; PULSE 70; O2SAT 94
--- NOTE | 2024-05-17 09:07 | PTOTSP ---
pt currently requires no assistance to complete simple ADLs, functional transfers, ambulation. pt demonstrates no acute OT needs at this time, will sign off.
--- NOTE | 2024-05-17 09:59 | CM ---
Patient seen at bedside
status post lap juvenal with cholangiogram
IMM explained & signed. In chart
no needs
PLAN: home, no needs
to transport
--- NOTE | 2024-05-17 10:25 | W.PN.HOSP.TC ---
Today's Communication/Plan
-
dc home
Assessment / Plan
Assessment / Plan
Assessment:
Biliary colic, gallstones, no evidence for acute cholecystitis, concern for possible CBD stone, CBD 9 mm
-US = gallstones without evidence of cholecystitis. CBD slightly enlarged at 9mm can not rule out obstructions.
-GI consultation appreciated
- s/p lap juvenal 05/16
- DC with GI/GS f/u and LFD
#DVT , history of
-last US in 2019 was negative
-resume [employer] Xarelto on 05/19 evening
Additional medication history:
#Esophageal stricture
#GERD
-continue famotidine
#Hypercholesterolemia
#Osteoarthritis
#Hx bowel obstruction,
#Hx hiatal hernia,
#Anxiety
-wellbutrin
-xanax
DVT proph-Scds
Full Code
More than 30 minutes spent in discharge including
Final examination of the patient
Summarizing hospital stay
Instructions for continuing care to all relevant caregivers
Preparation of discharge records, prescriptions, and referral forms
Total time spent (in minutes):42
Anticipated Discharge: Today
Subjective/Interval History
-
Date of Service: May 17, 2024
denies any new complaints
Objective Data
-
Labs:
Laboratory Results
05/17/24
07:17
WBC 4.8
Hgb 12.5
Hct 37.4
Plt Count 202
Sodium 138
Potassium 4.6
Chloride 103
Carbon Dioxide 27
BUN 14
Creatinine 0.7
Glucose 96
Calcium 9.0
Total Bilirubin 0.3
AST 215 H
ALT 272 H
Alkaline Phosphatase 154 H
Vital Signs:
Vital Signs
Temp Pulse Resp BP Pulse Ox
98.4 F 75 16 106/55 95
05/17/24 07:48 05/17/24 07:48 05/17/24 07:48 05/17/24 07:48 05/17/24 07:48
I&O
05/16/24 05/17/24 05/18/24
06:59 06:59 06:59
Intake Total 640 / 640 740 / 740
Balance 640 / 640 740 / 740
Physical Exam
-
General: No Apparent Distress
HEENT: Normocephalic and Atraumatic
Respiratory: Negative Wheezes
Cardiac: Regular Rhythm and S1/S2
GI: Soft and Nontender
Genito-urinary: No Costovertebral Tender
Neuro: AO x 3
Hematologic / Lymphatic: No Lymphadenopathy
Psych: Calm
Data Reviewed
-
Total Time Spent with Patient (in minutes): 42
Labs: Labs Reviewed by me
--- NOTE | 2024-05-17 10:36 | W.DS.TRANS ---
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
-
Discharge Instructions:
Discharge Diagnosis/Procedures biliary colic, lap cholecystectomy 05/16
Diet As tolerated,Low Fat
Additional Diets Smaller meals initially after surgery as
abdominal bloating and distention may be common
for the first few days
Activity No strenuous activity
Additional Activity No lifting over 20 pounds. Walking, standing,
stairs and routine daily activities are all okay
as tolerated
Driving Restrictions No driving
Bathing Restrictions OK to Shower
Wound Care Glue at surgical sites typically peels off in 2
to 3 weeks
Instructions:
Stand-Alone Forms:
Changes to Home Medications: No
Discharge Medications:
DC Medications w/original date entered in [facility]
calcium 500 mg (as carbonate)-vitamin D3 5 mcg (200 unit) tablet (Oyster Shell Calcium-Vitamin D3) 500 mg PO DAILY Supplement 05/03/12
sertraline 100 mg tablet 100 mg PO QPM depression/anxiety 05/03/12
alprazolam 0.5 mg tablet (Xanax) 0.5 mg PO HS anxiety 09/02/23
bupropion HCl 150 mg 24 hr tablet, extended release (Wellbutrin XL) 150 mg PO DAILY depression 09/02/23
cyanocobalamin (vitamin B-12) 1,000 mcg tablet 1,000 mcg PO DAILY Supplement 09/02/23
cyclosporine 0.05 % eye drops in a dropperette (Restasis) 1 drp BOTH EYES Q12H dry eyes 09/02/23
mirabegron 50 mg tablet,extended release 24 hr (Myrbetriq) 50 mg PO DAILY Urinary Issue 09/02/23
rivaroxaban 20 mg tablet (Xarelto) 20 mg PO QPM Blood Clot Prevention/Tx 09/02/23
therapeutic multivitamin 1 tab PO DAILY Supplement 09/02/23
vitamins A,C,T-qkgc-vnyjjo 2,148 mcg-113 mg-45 mg-17.4 mg tablet (PreserVision AREDS) 1 tab PO BID Supplement 09/02/23
cholecalciferol (vitamin D3) 25 mcg (1,000 unit) tablet (Vitamin D3) 25 mcg PO DAILY 05/14/24
estradiol 0.01% (0.1 mg/gram) vaginal cream 1 appful vaginal MOWEFR 05/14/24
famotidine 40 mg tablet 40 mg PO HS 05/14/24
acetaminophen 325 mg tablet 650 mg (2 x 325 mg) PO Q4HPRN PRN mild pain/HARRIS/temp> 100.4F #100 tabs 05/17/24
tramadol 50 mg tablet 25 mg (1/2 x 50 mg) PO Q6HPRN PRN moderate pain #10 tabs 05/17/24
Home Medication Changes
Pending Results: No
Total time spent discharging patient (in min): 42
[2024-05-17 10:59] VITALS: BP 141/63; PULSE 69; O2SAT 97
[2024-05-17 11:00] VITALS: BP 111/61
== END 2024-05-17 12:03 | disposition home or self-care (01) | DRG 419 ==
LOC: 2 SOUTH 11:35
PROVIDERS: Emergency Medicine; Internal Medicine; Surgery; ADMITTING PHYSICIAN Internal Medicine; ATTENDING PHYSICIAN Internal Medicine; CONSULT PHYSICIAN Internal Medicine Gastroenterology; CONSULT PHYSICIAN Surgery; EMERGENCY PHYSICIAN Emergency Medicine; FAMILY PHYSICIAN Family Medicine
PROC: 0FT44ZZ Resection of Gallbladder, Percutaneous Endoscopic Approach (ICD-10-PCS; 2024-05-16)
PROC: BF502Z0 Other Imaging of Bile Ducts using Fluorescing Agent, Intraoperative (ICD-10-PCS; 2024-05-16)
DX: K80.00 Calculus of gallbladder with acute cholecystitis without obstruction (principal); E78.00 Pure hypercholesterolemia, unspecified; K21.9 Gastro-esophageal reflux disease without esophagitis; K22.2 Esophageal obstruction; K76.0 Fatty (change of) liver, not elsewhere classified; F41.9 Anxiety disorder, unspecified; Z86.718 Personal history of other venous thrombosis and embolism; Z87.891 Personal history of nicotine dependence; Z88.5 Allergy status to narcotic agent; Z88.6 Allergy status to analgesic agent; Z79.899 Other long term (current) drug therapy; Z79.01 Long term (current) use of anticoagulants
CPT/HCPCS: 88304; 74183; 74300; 76000; 76700; 80053; 81003; 81015; 82248; 83690; 84484; 85025; 85027; 86705; 86706; 86709; 86803; 87086; 87340; 93005; 97116; 97162; 97165; 99285; A9575

== ENCOUNTER → 2024-11-25 10:36 | Outpatient (REF) | payer MEDICARE, OTHER, SELFPAY | LOC: HWRAD 10:36 | PROVIDERS: ATTENDING PHYSICIAN Family Medicine | DX: R10.9 Unspecified abdominal pain (principal); K59.00 Constipation, unspecified | CPT/HCPCS: 74018 ==

== ENCOUNTER 2024-12-06 13:08 | Inpatient (IN) | payer MEDICARE, OTHER, SELFPAY ==
[2024-12-06] VITALS (7 sets, daily range): BP systolic 99–123; BP diastolic 54–90; BMI 25.0
--- NOTE | 2024-12-06 10:54 | ED.GENMED ---
History of Present Illness
General
Chief Complaint: Skin Problem
Time Seen by Provider: 12/06/24 10:42
History of Present Illness
History of Present Illness:
89-year-old female presents the emergency department for evaluation of worsening redness and swelling to the left hand, she reports pain scratched or possibly bitten by her cat on Monday, was seen at urgent care yesterday and started on Augmentin,
has taken 3 doses thus far however symptoms are worsening. No fevers or chills. Cat is up-to-date on rabies vaccinations
Past History
Past History
ED Past Medical History: GERD, Hypercholesterolemia and Other (Osteoarthritis, DVT, bowel obstruction, hiatal hernia, Anxiety); Negative Asthma, HTN or NIDDM
ED Past Surgical History: Gynecological (D&C and tubal ligation) and Other (Bilateral cataract surgery)
Social History
Tobacco: Former smoker
Alcohol: None
Drug: None
Personal:
Living: with family
Employment: Retired
Family History
Family History: Negative Diabetes, Hypertension, Early CAD, Asthma or Cancer
Review of Systems
Review of Systems
Allergies reviewed?: Yes
All Other Systems: ROS reviewed and negative except as documented in HPI and ROS
Phy Exam
Physical Exam
Physical Exam:
GEN: Well appearing, NAD, WDWN
HEENT: Oral mucosa moist, no scleral icterus
Cardiac: Regular rate
Lung: No respiratory distress, no tachypnea
MSK: Significant erythema and swelling of the left dorsal hand extending beyond the wrist, punctate wound to the first the second interdigital webspace. There is severe pain with passive flexion of digits 2 through 4
Skin: Good color, no pallor or jaundice, no rashes
Neuro: AO x3, moves all extremities freely
Psych: Calm, cooperative
Course
Orders/Labs/Results
Orders:
Orders
12/06/24 Breakfast
Cholesterol Lowering
At Your Request: Full Participation
Cholesterol Lowering: Sodium, 2 Gram
12/06/24 11:05
Ampicillin/Sulbactam 3 G [Unasyn] 3 gm 0.9% Sodium Chloride 100 ml [Nss] 100 ml IV NOW
12/06/24 11:11
CRP [C-Reactive Protein] Urgent
Complete Blood Count/With Diff Urgent
Comprehensive Metabolic Panel Urgent
12/06/24 12:47
Admit/Transfer Patient As Directed
Co-Sign Provider:
Level of Care: Inpatient admission
Assign to:: Medical/Surgical
Physician / Group: [email or web address]
Diagnosis: Infected Cat bite wound at the first the second interdigital web space Lt h
Reason for Hospitalization: Infected Cat bite wound at the first the second interdigital web space Lt hand
Expected length of stay greater than two midnights?: Yes
ELOS- Estimated Length of Stay in days: 2
I certify the patient meets the requirements for IP care: Yes
12/06/24 12:54
Code Status As Directed
Resuscitation Status: Full Code
12/06/24 14:05
Acetaminophen [Tylenol] 650 mg PO Q4HPRN PRN mild pain/HARRIS/temp> 100.4F
Bisacodyl [Dulcolax] 10 mg RECTAL [id number] PRN
Docusate W/Senna [Senokot-S] 1 tablet PO BIDPRN PRN
Polyethylene Glycol Powder [Miralax] 17 grams PO DAILYPRN PRN
cycloSPORINE [Restasis 0.05% Ophthalmic Emulsion] 1 drops BOTH EYES Q12H
12/06/24 14:05
Upper Ext Joint W/O & With MR [MR Left Up Ext Joint W/o & W] Routine
Comment:
Reason For Exam: Infected Cat bite wound Lt hand - tenosynovitis ?
Recent pill cam endoscopy?: No
Activity As Directed
Activity Level: With Assistance
Vital Signs As Directed
Frequency: Per unit guidelines
12/06/24 18:00
Ampicillin/Sulbactam 3 G [Unasyn] 3 gm 0.9% Sodium Chloride 100 ml [Nss] 100 ml IV Q6
Rivaroxaban [Xarelto] 20 mg PO QPM
Sertraline HCl [Zoloft] 100 mg PO QPM
12/06/24 22:00
Alprazolam [Xanax] 0.5 mg PO HS
Estradiol Vaginal [Estrace 0.01% Vaginal Cream] 1 applic VAG MOWEFR
Famotidine [Pepcid] 40 mg PO HS
12/07/24 06:00
Basic Metabolic Panel IN AM
Complete Blood Count/No Diff IN AM
12/07/24 08:00
Bupropion(24Hr)Extended Releas [WELLBUTRIN XL (24 hour extended release)] 150 mg PO DAILY
mirabegron [Myrbetriq] See Dose Instructions PO DAILY
Abnormal Lab Results
12/06/24
11:11
RBC 4.06 L 10^6/uL
(4.20-5.40)
MCH 31.8 H pg
(27.0-31.0)
Lymphocytes % 18.4 L %
(20.5-51.1)
AST 41 H U/L
(14-36)
C-Reactive Protein 53.00 H mg/L
(0.0-10.00)
12/06/24 11:11
12/06/24 11:11
Vital Signs
Initial and Last Documented VS:
Initial Vital Signs
Pulse Resp Pulse Ox
66 18 96
12/06/24 09:21 12/06/24 09:21 12/06/24 09:21
Last Documented Vital Signs
Temp Pulse Resp BP Pulse Ox
98.2 F 76 18 99/71 96
12/06/24 14:15 12/06/24 14:15 12/06/24 14:15 12/06/24 14:15 12/06/24 14:15
MDM/Problems Addressed
MDM/Problems Addressed:
Given failure of outpatient antibiotics coupled with patient's concerning symptoms with pain with passive flexion of the MCP joints we will admit for IV antibiotics, could represent tenosynovitis particular given elevated CRP.
*Pulse Oximetry
SaO2: 96
Oxygen Mode of Delivery: Room air
Patient hypoxic: no (96% room air)
*Critical Care Note
Total Time (30-74mins, 75-104mins- exclusive of procedures): Not Applicable
ED Attending Note
-
Portions of this chart may have been created with voice recognition software.� Occasional wrong word or��sound alike� substitutions may have occurred due to the inherent limitations of voice recognition software.
Discharge Plan
Departure
Patient Disposition: Admit
Date of Disposition: 12/06/24
Time of Disposition: 12:27
Presentation/result/management discussed w/ accepting MD/DO: Hospitalist
Discharge Problem:
Cellulitis of left hand
Interventions
Interventions:
*Risk Screen - Suicide Last Done: 12/06/24 09:21
*General Assessment Last Done: 12/06/24 10:43
*Neglect/Abuse Screening Last Done: 12/06/24 09:21
*ED COVID-19 Vaccine History Last Done: 12/06/24 10:43
*Nursing Disposition Last Done: 12/06/24 14:20
ED-Skin Assessment Last Done: 12/06/24 10:43
Discharge Date and Time
Discharge Date/Time: 12/06/24 14:20
[2024-12-06 11:25] LABS: Hematocrit 38.2 % (37.0-47.0); Hemoglobin 12.9 g/dL (12.0-16.0); Mean Corp Hgb Conc. 33.8 g/dL (33.0-37.0); Mean Corpuscular Volume 94.1 fL (81.0-99.0); Nucleated Red Blood Cells % 0 %; Platelet Count 253 10^3/uL (130-400); Red Cell Dist. Width 12.6 % (11.5-14.5)
[2024-12-06] MEDS: UNASYN IV ×2 (11:31→17:29)
[2024-12-06 11:54] LABS: C-Reactive Protein 53.00 mg/L (0.0-10.00)
[2024-12-06 12:23] LABS: ALT (SGPT) 31 U/L (0-35); AST (SGOT) 41 U/L (14-36); Albumin 4.1 g/dl (3.5-5.0); Alkaline Phosphatase 92 U/L (38-126); Blood Urea Nitrogen 16 mg/dl (7-17); Calcium 9.7 mg/dl (8.4-10.2); Carbon Dioxide 26 mmol/L (22-30); Chloride 107 mmol/L (98-107); Estimated Creatinine Clearance 46 ml/min; Glucose 95 mg/dl (70-99); Potassium 4.0 mmol/L (3.5-5.1); Sodium 139 mmol/L (135-145); Total Protein 6.7 g/dl (6.3-8.2); eGFR > 60.00
--- NOTE | 2024-12-06 12:40 | HPS.HSE ---
Family Physician
-
Family Physician: Marv Mariscal
Chief Complaint
-
Worsening Lt hand wound s/p cat bite vs. scratch
History of Present Illness
HPI
89F on chr Xarelto for HX DVT, HLD, Esophageal stricture, GERD seen at ER :
- for evaluation of worsening redness and swelling to the left hand
- reports pain scratched or possibly bitten by her cat on Monday
- seen at urgent care yesterday and started on Augmentin, has taken 3 doses thus far
- however symptoms are worsening.
- Cat is up-to-date on rabies vaccinations
ROS
No fevers or chills.
ER [place]
First dose of IV Unasyn given
Medical History
Past Medical History
Past Medical History: Reports GERD and Hypercholesterolemia
Additional Past Medical History:
Esophageal stricture, GERD, Hypercholesterolemia, Osteoarthritis, DVT, bowel obstruction, hiatal hernia, Anxiety
Past Surgical History: Reports Other
Additional Past Surgical History:
D&C, tubal ligation, Bilateral cataract surgery
Social History
Tobacco: Former Smoker
Alcohol: None
Drug: None
Personal:
Living: With Family
Family History
Family History: Not pertinent
Allergies / Home Medications
Allergies reflects when Allergies were last updated in [facility].
Home Medications with original date entered in [facility]
Allergy/Medication List:
Allergies
Allergy/AdvReac Type Severity Reaction Status Date / Time
codeine Allergy Nausea Verified 05/14/24 14:42
aspirin AdvReac upsets her Verified 05/14/24 14:42
stomach
Home Medications
calcium 500 mg (as carbonate)-vitamin D3 5 mcg (200 unit) tablet (Oyster Shell Calcium-Vitamin D3) 500 mg PO DAILY Supplement 05/03/12
sertraline 100 mg tablet 100 mg PO QPM depression/anxiety 05/03/12
alprazolam 0.5 mg tablet (Xanax) 0.5 mg PO HS anxiety 09/02/23
bupropion HCl 150 mg 24 hr tablet, extended release (Wellbutrin XL) 150 mg PO DAILY depression 09/02/23
cyanocobalamin (vitamin B-12) 1,000 mcg tablet 1,000 mcg PO DAILY Supplement 09/02/23
cyclosporine 0.05 % eye drops in a dropperette (Restasis) 1 drp BOTH EYES Q12H dry eyes 09/02/23
mirabegron 50 mg tablet,extended release 24 hr (Myrbetriq) 50 mg PO DAILY Urinary Issue 09/02/23
rivaroxaban 20 mg tablet (Xarelto) 20 mg PO QPM Blood Clot Prevention/Tx 09/02/23
therapeutic multivitamin 1 tab PO DAILY Supplement 09/02/23
vitamins A,C,V-vucp-sojaca 2,148 mcg-113 mg-45 mg-17.4 mg tablet (PreserVision AREDS) 1 tab PO BID Supplement 09/02/23
cholecalciferol (vitamin D3) 25 mcg (1,000 unit) tablet (Vitamin D3) 25 mcg PO DAILY 05/14/24
estradiol 0.01% (0.1 mg/gram) vaginal cream 1 appful vaginal MOWEFR 05/14/24
famotidine 40 mg tablet 40 mg PO HS 05/14/24
Review of Systems
-
Constitutional: Reports No Symptoms
EENT: Reports No Symptoms
Respiratory: Reports No Symptoms
Cardiac: Reports No Symptoms
Abdomen/GI: Reports No Symptoms
: Reports No Symptoms
Musculoskeletal: Reports See HPI
Skin: Reports See HPI
Neurological: Reports No Symptoms
Endocrine: Reports No Symptoms
Hematologic/Lymphatic: Reports No Symptoms
Psych: Reports No Symptoms
Physical Exam
Vital Signs
Vital Signs
Temp Pulse Resp BP Pulse Ox
97.8 F 61 14 120/59 97
12/06/24 11:12 12/06/24 11:45 07/04/25 11:45 12/06/24 11:12 12/06/24 11:45
Physical Exam
General: No Apparent Distress and Conversant
HEENT: Anicteric and Moist mucous membranes
Respiratory: Clear
Cardiac: S1/S2
Genito-urinary: Deferred by me
Skin: Other (Significant erythema and swelling of the left dorsal hand extending beyond the wrist, punctate wound to the first the second interdigital webspace. There is severe pain with passive flexion of digits 2 through 4)
Neuro: AO x 3
Psych: Calm
Laboratory Results
-
12/06/24 11:11
12/06/24 11:11
Laboratory Results
Total Bilirubin 0.7 mg/dl (0.2-1.3) 12/06/24 11:11
AST 41 U/L (14-36) H 12/06/24 11:11
ALT 31 U/L (0-35) 12/06/24 11:11
Alkaline Phosphatase 92 U/L (38-126) 12/06/24 11:11
Data Reviewed
-
Lab Data: Labs Reviewed by me
Old Records: Reviewed
Impression/Plan
-
Vital Signs
Temp Pulse Resp BP Pulse Ox
97.8 F 61 14 120/59 97
12/06/24 11:12 12/06/24 11:45 12/06/24 11:45 12/06/24 11:12 12/06/24 11:45
Laboratory Tests
12/06/24
11:11
WBC 6.6
Creatinine 0.7
eGFR > 60.00
AST 41 H
ALT 31
C-Reactive Protein 53.00 H
Last hospitalist admission:
PDX :biliary colic, lap cholecystectomy 05/16
ASSESSMENT & PLAN
Infected Cat bite wound of at punctate wound to the first the second interdigital webspace Lt hand
- Failed progress with OP PO Augmentin
- elevated CRP
- agree with IV Unasyn
- PRN analgesia
- MRI of hand with contrast - if any abnormality - to consider hand surgeson consult
HX DVT
-last US in 2019 was negative
-on CSR Xarelto
Additional medication history:
HX Anxiety and depression
- on CSR wellbutrin XL
- on Xanax 0.5 mg HS
Esophageal stricture
GERD
-continue famotidine
Hypercholesterolemia
- No statin is listed
HX Osteoarthritis
HX bowel obstruction,
HX hiatal hernia,
DVT Px: on Xarelto
Code: Full
IP MS
[2024-12-06] MEDS: RESTASIS 0.05% OPHTHALMIC EMULSION 1 DROPS BOTH EYES (14:55)
[2024-12-06] MEDS: ZOLOFT 100 MG PO (17:03)
[2024-12-06] MEDS: XARELTO 20 MG PO (17:03)
[2024-12-06] MEDS: XANAX 0.5 MG PO (21:39)
[2024-12-06] MEDS: PEPCID 40 MG PO (21:39)
[2024-12-07] MEDS: UNASYN IV ×4 (00:04→17:03)
[2024-12-07] MEDS: RESTASIS 0.05% OPHTHALMIC EMULSION BOTH EYES (02:22)
--- NOTE | 2024-12-07 07:16 | W.PN.HOSP.TC ---
Addendum entered and electronically signed by Yennifer Eugene MD 12/07/24 14:05:
I saw and evaluated the patient independently. I reviewed the resident�s note and agree with findings and plan as documented by Dr. Anderson.
GENERAL: well developed, well nourished, female in no apparent distress
HEENT: NC/AT--no O2 requirements
HEART: regular rate and rhythm, +S1, +S2
LUNGS : clear to auscultation bilaterally
ABDOM: soft, nontender, nondistended, + bowel sounds
EXT: no cyanosis, clubbing---left hand with swelling and redness to mid forearm--tender to touch and swollen
NEUROLOGIC: left handed
Infected cat bite wound--does not meet SIRS criteria--await MRI--consult OT, ortho--consider ID consult but cont Unasyn for now--elevate hand to help with swelling--tylenol and toradol x 1 for now--hold on narcotics
Gastroesophageal reflux disease--Continue home meds (famotidine)
Hyperlipidemia--Not currently taking any home medications
Hx of DVT--DVT in 2019 negative--hold Xarelto for now--in case MRI positive for abscess and pt needs I&D
Anxiety/Depression--Continue home medications (Sertraline, alprazolam, bupropion)--Encouraged follow up with PCP
Overactive Bladder--cont mirabegron
DVT proph
code status--FULL CODE
Original Note:
Today's Communication/Plan
-
MRI of hand today. PT/OT consult.
Assessment / Plan
Assessment / Plan
Assessment
This an 89 y/o female with phmx of GERD, HLD, DVT, Anxiety who presented to the ED on 12/06/2024 with redness and swelling of her left hand after possibly being bitten or scratched by her cat on 12/03/2024.
Plan
Infected cat bite wound
-Patient does not meet SIRS criteria
-Pending results of MRI of hand
-Consulted Orthopedics for possible abscess drainage
-Consulted PT/OT
-Continue IV Unasyn
-Continue PRN Tylenol for pain
-Added one time dose of Toradol for pain.
Gastroesophageal reflux disease
-Continue home meds (famotidine)
Hyperlipidemia
-Not currently taking any home medications
Hx of DVT
-DVT in 2019 negative
-STOPPED home medications (Xarelto) in anticipation of possible orthopedic procedure/abcess drainage. Will resume if surgery is not indicated
Anxiety/Depression
-Continue home medications (Sertraline, alprazolam, bupropion)
-Encouraged follow up with PCP
Overactive Bladder
-Conitinue home meds (mirabegron)
Anticipated Discharge: 24 - 48 hours
Subjective/Interval History
-
Date of Service: December 07, 2024
Patient was out of bed when I arrived. She requested help with opening her toothpaste so she could brush her teeth, and reports she has had much difficulty with using her hand because of ongoing pain and swelling. She is left hand dominant and
worries about not being able to do things like open her own toothpaste or tie her clothes.
Objective Data
-
Labs:
Laboratory Results
12/07/24
06:00
WBC Pending
Hgb Pending
Hct Pending
Plt Count Pending
Sodium Pending
Potassium Pending
Chloride Pending
Carbon Dioxide Pending
BUN Pending
Creatinine Pending
Glucose Pending
Calcium Pending
Vital Signs:
Vital Signs
Temp Pulse Resp BP Pulse Ox
99.5 F 84 14 117/54 92
12/06/24 23:00 12/06/24 23:00 12/06/24 23:00 12/06/24 23:00 12/06/24 23:00
I&O
12/06/24 12/07/24 12/08/24
06:59 06:59 06:59
Intake Total 360 / 360
Balance 360 / 360
Review of Systems
-
History Source: Patient
Constitutional: Reports No Symptoms
Respiratory: Reports No Symptoms
Cardiac: Reports No Symptoms
Abdomen/GI: Reports No Symptoms
Musculoskeletal: Reports Joint Pain, Edema and Myalgias
Skin: Denies Itching
Neuro: Denies Dizzy or Headache
Physical Exam
-
General: Well Developed, Well Nourished, No Apparent Distress and Pain
HEENT: Normocephalic and Atraumatic
Respiratory: Clear to Auscultation
Cardiac: Regular Rhythm and S1/S2
Musculoskeletal: Other (Erythema of left hand extending up to long term up the arm with sparing of the fingers accompanied by pain. Two scabbed over puncture wounds near thumb and wrist, with fluctuance near wrist puncture wound measuring 1cm by 1cm.
Extremely tender with pain with passive pronation and supination. )
Neuro: Awake, Alert and Oriented
Psych: Calm
[2024-12-07 07:26] VITALS: BP 126/88
[2024-12-07] MEDS: WELLBUTRIN XL (24 hour extended release) 150 MG PO (07:33)
[2024-12-07] MEDS: MYRBETRIQ EXTENDED RELEASE 50 MG PO (07:33)
[2024-12-07 11:25] LABS: Hematocrit 38.0 % (37.0-47.0); Hemoglobin 13.0 g/dL (12.0-16.0); Mean Corp Hgb Conc. 34.2 g/dL (33.0-37.0); Mean Corpuscular Volume 92.9 fL (81.0-99.0); Platelet Count 264 10^3/uL (130-400); Red Cell Dist. Width 12.7 % (11.5-14.5)
[2024-12-07 11:48] LABS: Blood Urea Nitrogen 15 mg/dl (7-17); Calcium 9.5 mg/dl (8.4-10.2); Carbon Dioxide 25 mmol/L (22-30); Chloride 104 mmol/L (98-107); Estimated Creatinine Clearance 46 ml/min; Glucose 118 mg/dl (70-99); Potassium 3.6 mmol/L (3.5-5.1); Sodium 137 mmol/L (135-145); eGFR > 60.00
--- NOTE | 2024-12-07 12:56 | CM ---
Patient out of room when CM attempted to see patient. CM will return to complete IA.
[2024-12-07] MEDS: TORADOL 15 MG IV (13:44)
[2024-12-07] MEDS: RESTASIS 0.05% OPHTHALMIC EMULSION 1 DROPS BOTH EYES (13:44)
[2024-12-07 15:14] VITALS: BP 121/54
[2024-12-07] MEDS: ZOLOFT 100 MG PO (17:03)
--- NOTE | 2024-12-07 19:08 | W.PN.UPDATE ---
Update Note
Progress Note Update
I spoke with the patient and her about the results of her MRI. I let her know that orthopedics have already been consulted and we would be splinting and elevating her hand. I also informed her that her Xarelto has been held with her last
dose being on 12/06/2024 at 6PM. I informed her she would be NPO after midnight in anticipation of orthopedics seeing her in the morning in the event they decide a procedure is indicated. Overall time spent counselling patient was 12 minutes.
[2024-12-07] MEDS: PEPCID 20 MG PO (21:19)
[2024-12-07] MEDS: XANAX 0.5 MG PO (21:19)
[2024-12-07 23:45] VITALS: BP 117/58
[2024-12-08] MEDS: RESTASIS 0.05% OPHTHALMIC EMULSION BOTH EYES (02:04)
[2024-12-08] MEDS: UNASYN IV ×5 (06:06→23:57)
[2024-12-08 06:18] LABS: Hematocrit 33.7 % (37.0-47.0); Hemoglobin 11.6 g/dL (12.0-16.0); Mean Corp Hgb Conc. 34.4 g/dL (33.0-37.0); Mean Corpuscular Volume 92.3 fL (81.0-99.0); Platelet Count 230 10^3/uL (130-400); Red Cell Dist. Width 12.4 % (11.5-14.5)
[2024-12-08 06:45] LABS: Blood Urea Nitrogen 17 mg/dl (7-17); Calcium 8.8 mg/dl (8.4-10.2); Carbon Dioxide 25 mmol/L (22-30); Chloride 107 mmol/L (98-107); Estimated Creatinine Clearance 46 ml/min; Glucose 87 mg/dl (70-99); Potassium 3.6 mmol/L (3.5-5.1); Sodium 136 mmol/L (135-145); eGFR > 60.00
[2024-12-08 07:35] VITALS: BP 112/61
--- NOTE | 2024-12-08 08:13 | CON.ORTHO ---
Consultation
-
Date/Time Consultation Performed: 8 AM 12/08/2024
Consultation - Orthopedics
History
HPI: 89-year-old female presented to the emergency department complaints of left hand and wrist swelling. She reportedly had been either scratched or bitten by her cat on Monday. She was started on outpatient oral antibiotics with progression of
pain and swelling and redness. She was admitted for IV antibiotics. MRI was obtained. Orthopedics is consulted for further evaluation and treatment. This morning patient reports that she is markedly improved. She reports that she was unable to
touch her hand whatsoever upon presentation emergency department. She reports that now she is able to move her wrist fingers and hand without significant pain. She reports the redness has improved dramatically. She reports that swelling is
improved dramatically.
Allergies / Home Medications
Past medical history: GERD, hypercholesterolemia, DVT
Past surgical history: Gynecologic, cataract surgery
Social history: Former smoker, , lives with family
Family history: Not pertinent
Allergy/AdvReac Type Severity Reaction Status Date / Time
aspirin Allergy upsets her Verified 12/06/24 09:21
stomach
codeine Allergy Nausea Verified 12/06/24 09:21
�Medication �Instructions �Recorded
calcium 500 mg (as 500 mg PO DAILY Supplement 05/03/12
carbonate)-vitamin D3 5 mcg (200
unit) tablet (Oyster Shell
Calcium-Vitamin D3)
sertraline 100 mg tablet 100 mg PO QPM depression/anxiety 05/03/12
alprazolam 0.5 mg tablet (Xanax) 0.5 mg PO HS anxiety 09/02/23
bupropion HCl 150 mg 24 hr tablet, 150 mg PO DAILY depression 09/02/23
extended release (Wellbutrin XL)
cyanocobalamin (vitamin B-12) 1,000 mcg PO DAILY Supplement 09/02/23
1,000 mcg tablet
cyclosporine 0.05 % eye drops in a 1 drp BOTH EYES Q12H dry eyes 09/02/23
dropperette (Restasis)
mirabegron 50 mg tablet,extended 50 mg PO DAILY Urinary Issue 09/02/23
release 24 hr (Myrbetriq)
rivaroxaban 20 mg tablet (Xarelto) 20 mg PO QPM Blood Clot 09/02/23
Prevention/Tx
therapeutic multivitamin 1 tab PO DAILY Supplement 09/02/23
vitamins A,C,S-htms-vxpngc 2,148 1 tab PO BID Supplement 09/02/23
mcg-113 mg-45 mg-17.4 mg tablet
(PreserVision AREDS)
cholecalciferol (vitamin D3) 25 25 mcg PO DAILY Supplement 05/14/24
mcg (1,000 unit) tablet (Vitamin
D3)
estradiol 0.01% (0.1 mg/gram) 1 appful vaginal MOWEFR menopause 05/14/24
vaginal cream
famotidine 40 mg tablet 40 mg PO HS Gastrointestinal Issue 05/14/24
acetaminophen 325 mg tablet 650 mg (2 x 325 mg) PO Q4HPRN PRN 05/17/24
mild pain/HARRIS/temp> 100.4F #100 tabs
amoxicillin 875 mg-potassium 1 tab PO BID Infection 12/06/24
clavulanate 125 mg tablet
Vital Signs / Lab Results
Temp Pulse Resp BP Pulse Ox
98.8 F 72 16 112/61 95
12/08/24 07:35 12/08/24 07:35 12/08/24 07:35 12/08/24 07:35 12/08/24 07:35
12/08/24 05:28
12/08/24 05:28
10 point review systems reviewed and negative unless otherwise stated
General: Pleasant, no acute distress at rest
Musculoskeletal left upper extremity
Skin intact, very minimal visible erythema this morning, mild to moderate swelling noted throughout wrist and hand
Small scab noted over the first webspace as well as dorsum of hand just distal to the radiocarpal joint
Patient is able to form near composite fist
Nontender to palpation along flexor tendon sheath all 5 digits
Minimal tenderness palpation over volar aspect of wrist
Motor intact to AIN, PIN, median, radial, ulnar nerve distributions
Sensation tact to light touch in median, radial, ulnar nerve distributions
Laparoscopic
Diagnostic studies
MRI left hand independent viewed by myself. Radiology report reviewed. Imaging reviewed. There is evidence of fluid enhancement within the carpal tunnel as well as some additional tenosynovitis evident extensor tendons of the long and ring
fingers. No abscesses or fluid collections notable.
Assessment / Plan
89-year-old female status post cat bite left hand. Patient reports feeling marked improvement since initiation of IV antibiotics. Did review MRI findings with the patient. At this point I would continue to monitor without plans for surgical
intervention. Did place patient in a splint and did ask her to keep her extremity elevated. Will plan to reassess patient in the a.m. Certainly if symptoms should worsen, consideration could be given for surgical irrigation debridement however at
this point her symptoms are improving quite substantially on IV antibiotics. Please reach out any questions or concerns.
[2024-12-08] MEDS: MYRBETRIQ EXTENDED RELEASE 50 MG PO (08:15)
[2024-12-08] MEDS: WELLBUTRIN XL (24 hour extended release) 150 MG PO (08:15)
--- NOTE | 2024-12-08 09:10 | W.PN.HOSP.TC ---
Addendum entered and electronically signed by Yennifer Eugene MD 12/08/24 14:01:
I saw and evaluated the patient independently. I reviewed the resident�s note and agree with findings and plan as documented by Dr. Santillan.
GENERAL: well developed, well nourished, female in no apparent distress
HEENT: NC/AT--no O2 requirements
HEART: regular rate and rhythm, +S1, +S2
LUNGS : clear to auscultation bilaterally
ABDOM: soft, nontender, nondistended, + bowel sounds
EXT: no cyanosis, clubbing---left hand with swelling and redness to mid forearm--tender to touch and swollen
NEUROLOGIC: left handed
Infected cat bite wound--does not meet SIRS criteria--MRI with tenosynovitis--apprec ortho, no need for surgery currently--consult ID-- cont Unasyn for now--elevate hand to help with swelling--tylenol and toradol x 1 for now--hold on narcotics
Gastroesophageal reflux disease--Continue home meds (famotidine)
Hyperlipidemia--Not currently taking any home medications
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
Anxiety/Depression--Continue home medications (Sertraline, alprazolam, bupropion)--Encouraged follow up with PCP
Overactive Bladder--cont mirabegron
DVT proph
code status--FULL CODE
Original Note:
Today's Communication/Plan
-
No surgery today, improving symptoms
Infectious disease consulted
Patient discussed with Ortho about reevaluation tomorrow
Assessment / Plan
Assessment / Plan
Assessment
This an 89 y/o female with phmx of GERD, HLD, DVT, Anxiety who presented to the ED on 12/06/2024 with redness and swelling of her left hand after possibly being bitten or scratched by her cat on 12/03/2024. Cat is up-to-date with vaccinations. She
reported no fevers or chills. She went to urgent care and was given Augmentin, had taken 3 doses. Symptoms swelling pain redness worsened prompting presentation to ED. In the hospital MRI showed tenosynovitis of the tendons of the third through 5th
fingers. Orthopedics and infectious disease were consulted. Orthopedics discussed with patient about surgery however patient was clinically improving with decreasing redness and pain. In discussion with orthopedics she decided to wait 1 more day
to be reevaluated.
#LUE wound
Infected cat bite wound
-Patient does not meet SIRS criteria
-MRI of hand 12/07 showed tenosynovitis of the tendons of the 3rd through 5th fingers without fluctuant collection
-Consulted Orthopedics, to reevaluate tomorrow 12/09
-Consulted PT/OT
-Continue IV Unasyn
-Continue PRN Tylenol for pain
#Gastroesophageal reflux disease
-Continue home meds (famotidine)
#Hyperlipidemia
-Not currently taking any home medications
#Hx of DVT
-DVT in 2019 negative
-STOPPED home medications (Xarelto) in anticipation of possible orthopedic procedure/abcess drainage. Will resume if surgery is not indicated
#Anxiety/Depression
-Continue home medications (Sertraline, alprazolam, bupropion)
-Encouraged follow up with PCP
#Overactive Bladder
-Conitinue home meds (mirabegron)
Anticipated Discharge: 24 - 48 hours
Subjective/Interval History
-
Patient was seen at bedside. Orthopedic doctor was present wrapping the arm. Patient states that the pain has gotten much better and redness has been improving. Ortho and patient discussed about the surgery, decided to reevaluate tomorrow morning
as subjectively getting better. She reports that she was able to use her left hand for brushing her teeth and taking her pills feels much better than yesterday. Date of Service: December 08, 2024
Objective Data
-
Labs:
Laboratory Results
07/06/25
05:28
WBC 5.8
Hgb 11.6 L
Hct 33.7 L
Plt Count 230
Sodium 136
Potassium 3.6
Chloride 107
Carbon Dioxide 25
BUN 17
Creatinine 0.7
Glucose 87
Calcium 8.8
Vital Signs:
Vital Signs
Temp Pulse Resp BP Pulse Ox
98.8 F 72 16 112/61 95
12/08/24 07:35 12/08/24 07:35 12/08/24 07:35 12/08/24 07:35 12/08/24 07:35
I&O
12/07/24 12/08/24 12/09/24
06:59 06:59 06:59
Intake Total 360 / 360 720 / 720
Balance 360 / 360 720 / 720
Review of Systems
-
History Source: Patient
Constitutional: Reports No Symptoms; Denies Fever
EENT: Reports No Symptoms Reported; Denies Sore Throat or Runny Nose
Respiratory: Reports No Symptoms; Denies Cough or Trouble Breathing
Cardiac: Reports No Symptoms; Denies Chest Pain or Palpitations
Abdomen/GI: Reports No Symptoms; Denies Abdominal Pain, Nausea, Vomiting or Diarrhea
Genitourinary: Reports No Symptoms; Denies Dysuria
Musculoskeletal: Reports Joint Pain (Left wrist and hand), Joint Swelling, Muscle Pain and Edema (Mild left and)
Skin: Reports Other (Red patch on left hand)
Neuro: Reports No Symptoms; Denies Dizzy or Headache
Physical Exam
-
General: Well Developed, Well Nourished, No Apparent Distress and Comfortable
HEENT: Normocephalic and Atraumatic
Respiratory: Clear to Auscultation; Negative Wheezes or Crackles
Cardiac: Regular Rhythm and S1/S2; Negative Murmur
GI: Soft; Negative Nontender, Nondistended or Normal Bowel Sounds
Musculoskeletal: No Clubbing, No Cyanosis and Other (Reduced erythema of the left arm extending from wrist towards elbow. Tender to palpation near wrist no tenderness with movement of thumb and fingers)
Skin: Lesions (Scabbed puncture wound left wrist) and Other (Erythema of left upper extremity from wrist to elbow)
Neuro: Awake, Alert and Oriented
[2024-12-08 09:13] VITALS: BP 126/69; PULSE 75
[2024-12-08 09:14] VITALS: BP 126/69; PULSE 75
--- NOTE | 2024-12-08 10:07 | CON.ID ---
Consultation
-
Date/Time Consultation Requested: 12/08/2024 0755
Date/Time Consultation Performed: 12/08/2024 1000
Requesting Provider: Dr. Santillan
Performing Provider: Dr. Salgado
Reason for Consultation: Cat Bite
Chief Complaint / Past History
History of Present Illness
Glory Cotter is an 89-year-old female being evaluated at the request of Dr. Santillan regarding a left hand cat bite. History is obtained from chart review, along with patient interview.
The patient reports that she lives with her and a cat, which has medium to long hair. Five days ago, she was brushing the cat, and as she did so the cat turned and bit her on her left hand at the base of the thumb area. She recalls that
the area got red. 2 days later, she was seen at a local urgent care center, and started on Augmentin. Despite antibiotic therapy, yesterday she noted marked increase in swelling and pain and she came to the emergency room for further evaluation.
Here she was started on empiric Unasyn and admitted for further workup.
At the present time she notes some improvement in the pain of the hand.
Past History
Additional Past Medical History:
GERD
HLD
Osteoarthritis
Hx DVT
Anxiety
Additional Past Surgical History:
D&C
Tubal ligation
Bilateral cataract surgery
Allergy History:
aspirin Allergy (Verified 12/06/24 09:21)
upsets her stomach
codeine Allergy (Verified 12/06/24 09:21)
Nausea
Medications Reviewed: Yes
Current Antibiotics:
Unasyn 3 g IV every 6 hours
Social History
Tobacco: Non-Smoker
Alcohol: None
Drug: None
Personal:
Living: With Family
Employment: Retired
Family History
Family History: Not Pertinent
Review of Systems
Vital Signs
Temp Pulse Resp BP Pulse Ox
98.8 F 72 16 112/61 95
12/08/24 07:35 12/08/24 07:35 12/08/24 07:35 12/08/24 07:35 12/08/24 07:35
Physical Exam
Physical Exam
Constitutional: No Acute Distress, Comfortable and Non-toxic
Eyes: No Conjunctival Hemorrhage and Sclera Anicteric
Oral: No Thrush and No Ulcers
Cardiovascular: Regular Rate and S1/S2; Negative S3/S4
Pulmonary: Clear; Negative Wheezes, Rales or Rhonchi
Gastrointestinal: Soft, Non Tender and Non Distended
Extremities: Edema (Left hand) and Erythema (mild-mod of (L) hand)
Musculoskeletal: Other (Decreased left hand ROM)
Neurological: Awake and Alert
Psychological: Calm
Lab / Diagnostic Study Results
12/08/24 05:28
12/08/24 05:28
Abs Immat Gran (auto) 0.0 10^3/uL (0-0.05) 12/06/24 11:11
Absolute Neuts (auto) 4.7 10^3/uL (1.4-6.5) 12/06/24 11:11
Absolute Lymphs (auto) 1.2 10^3/uL (1.2-3.4) 12/06/24 11:11
Absolute Monos (auto) 0.5 10^3/uL (0.1-0.6) 12/06/24 11:11
Absolute Basos (auto) 0.0 10^3/uL (0-0.2) 12/06/24 11:11
Immature Gran % 0.2 % (0-0.5) 12/06/24 11:11
Neutrophils % 71.4 % (42.2-75.2) 12/06/24 11:11
Lymphocytes % 18.4 % (20.5-51.1) L 12/06/24 11:11
Monocytes % 7.9 % (1.7-9.3) 12/06/24 11:11
Eosinophils % 1.5 % (0-6) 12/06/24 11:11
Basophils % 0.6 % (0-2) 12/06/24 11:11
C-Reactive Protein 53.00 mg/L (0.0-10.00) H 12/06/24 11:11
Microbiology Results
Imaging:
12/07/2024 MRI left upper extremity: There is findings of tenosynovitis with fluid and enhancement along the flexor digitorum superficialis and profundus tendons and which extends along the tendons of the third through fifth fingers, most pronounced
of the fifth finger were extends to the level of the proximal interphalangeal joint. Additionally there is mild tenosynovitis involving the extensor tendons of the third and fourth fingers.
Assessment / Plan
Left hand cat bite
Left hand tenosynovitis
Elevated CRP
GERD
HLD
Osteoarthritis
Hx DVT
Anxiety
Recommendations:
Continue with Unasyn (d#3)
Continue to monitor for clinical improvement.
Upper extremity elevation to control edema.
Continue with splinting.
Further recommendations as additional data is returned.
[2024-12-08] MEDS: RESTASIS 0.05% OPHTHALMIC EMULSION 1 DROPS BOTH EYES (14:31)
[2024-12-08 15:17] VITALS: BP 106/62
[2024-12-08] MEDS: ZOLOFT 100 MG PO (17:59)
[2024-12-08] MEDS: PEPCID 20 MG PO (21:20)
[2024-12-08] MEDS: XANAX 0.5 MG PO (21:21)
[2024-12-08] MEDS: TYLENOL 650 MG PO (21:23)
[2024-12-08 23:13] VITALS: BP 121/64
[2024-12-09] MEDS: RESTASIS 0.05% OPHTHALMIC EMULSION BOTH EYES (02:30)
[2024-12-09] MEDS: UNASYN IV ×3 (05:32→18:06)
[2024-12-09 07:28] LABS: Hematocrit 32.6 % (37.0-47.0); Hemoglobin 11.1 g/dL (12.0-16.0); Mean Corp Hgb Conc. 34.0 g/dL (33.0-37.0); Mean Corpuscular Volume 92.9 fL (81.0-99.0); Platelet Count 235 10^3/uL (130-400); Red Cell Dist. Width 12.7 % (11.5-14.5)
[2024-12-09 07:50] LABS: Blood Urea Nitrogen 26 mg/dl (7-17); Calcium 9.0 mg/dl (8.4-10.2); Carbon Dioxide 25 mmol/L (22-30); Chloride 111 mmol/L (98-107); Estimated Creatinine Clearance 40 ml/min; Glucose 98 mg/dl (70-99); Potassium 4.1 mmol/L (3.5-5.1); Sodium 139 mmol/L (135-145); eGFR > 60.00
[2024-12-09 08:08] VITALS: BP 117/59
[2024-12-09] MEDS: WELLBUTRIN XL (24 hour extended release) 150 MG PO (08:13)
[2024-12-09] MEDS: MYRBETRIQ EXTENDED RELEASE 50 MG PO (08:13)
--- NOTE | 2024-12-09 09:33 | W.PN.HOSP.TC ---
Today's Communication/Plan
-
Patient doing better
Awaiting reevaluation by orthopedics if no surgery will restart Xarelto DC to home
Assessment / Plan
Assessment / Plan
Assessment
This an 89 y/o female with phmx of GERD, HLD, DVT, Anxiety who presented to the ED on 12/06/2024 with redness and swelling of her left hand after possibly being bitten or scratched by her cat on 12/03/2024. Cat is up-to-date with vaccinations. She
reported no fevers or chills. She went to urgent care and was given Augmentin, had taken 3 doses. Symptoms swelling pain redness worsened prompting presentation to ED. In the hospital MRI showed tenosynovitis of the tendons of the third through 5th
fingers. Orthopedics and infectious disease were consulted. Orthopedics discussed with patient about surgery however patient was clinically improving with decreasing redness and pain. In discussion with orthopedics she decided to wait 1 more day
to be reevaluated.
#LUE wound
Infected cat bite wound
-Patient does not meet SIRS criteria
-MRI of hand 12/07 showed tenosynovitis of the tendons of the 3rd through 5th fingers without fluctuant collection
-Consulted Orthopedics, to reevaluate tomorrow 12/09
-Consulted PT/OT
-Continue IV Unasyn
-Continue PRN Tylenol for pain
#Gastroesophageal reflux disease
-Continue home meds (famotidine)
#Hyperlipidemia
-Not currently taking any home medications
#Hx of DVT
-DVT in 2019 negative
-STOPPED home medications (Xarelto) in anticipation of possible orthopedic procedure/abcess drainage. Will resume if surgery is not indicated
#Anxiety/Depression
-Continue home medications (Sertraline, alprazolam, bupropion)
-Encouraged follow up with PCP
#Overactive Bladder
-Conitinue home meds (mirabegron)
DVT ppx
On Xarelto
CODE Status
Full code
Anticipated Discharge: Within 24 hours
Subjective/Interval History
-
Mrs Cotter was seen at bedside today. She reports that her arm feels better however she is having trouble keeping it elevated 26/12. Talked with her regarding strategies to elevate and also reach out to her nurse to provide extra pillows for
elevation. Encouraged her to talk more with orthopedics about how long to elevate each day. Hand seems to be doing better still able to close it without difficulty. No increased pain with redness reducing. Patient is eager to go home. Awaiting
reevaluation by orthopedics. Date of Service: December 09, 2024
Objective Data
-
Labs:
Laboratory Results
12/09/24
06:49
WBC 5.2
Hgb 11.1 L
Hct 32.6 L
Plt Count 235
Sodium 139
Potassium 4.1
Chloride 111 H
Carbon Dioxide 25
BUN 26 H
Creatinine 0.8
Glucose 98
Calcium 9.0
Vital Signs:
Vital Signs
Temp Pulse Resp BP Pulse Ox
97.8 F 69 16 117/59 92
12/09/24 08:08 12/09/24 08:08 12/09/24 08:08 12/09/24 08:08 12/09/24 08:08
I&O
12/08/24 12/09/24 12/10/24
06:59 06:59 06:59
Intake Total 720 / 720 1340 / 1340
Balance 720 / 720 1340 / 1340
Review of Systems
-
History Source: Patient
All other systems: Reviewed and negative
Constitutional: Reports No Symptoms; Denies Fever
EENT: Reports No Symptoms Reported; Denies Sore Throat
Respiratory: Reports No Symptoms; Denies Cough or Trouble Breathing
Cardiac: Reports No Symptoms; Denies Chest Pain or Palpitations
Abdomen/GI: Reports No Symptoms; Denies Abdominal Pain, Nausea, Vomiting or Diarrhea
Genitourinary: Reports No Symptoms; Denies Dysuria
Musculoskeletal: Reports Joint Pain (Left wrist) and Muscle Pain (Left arm)
Skin: Reports Other (Left arm redness, reducing)
Physical Exam
-
General: Well Developed, Well Nourished, No Apparent Distress and Comfortable
HEENT: Normocephalic and Atraumatic
Respiratory: Clear to Auscultation; Negative Wheezes or Crackles
Cardiac: Regular Rhythm and S1/S2; Negative Murmur or Rub
GI: Soft, Nontender, Nondistended and Normal Bowel Sounds
Musculoskeletal: No Clubbing, No Cyanosis and No Edema
Skin: Warm, Dry and Other (Left arm erythema from wrist to elbow, greatly reduced, no fluctuance appreciated on wrist)
Neuro: Awake, Alert and Oriented
Psych: Calm
--- NOTE | 2024-12-09 12:53 | W.PN.ORTHO ---
Today's Communication / Plan
-
89-year-old female status post cat bite some evidence of flexor and extensor tenosynovitis on MRI. Patient continues to improve clinically. At this point would likely recommend continued conservative treatment. Certainly if symptoms should change
or worsen, can reconsider possibility of surgical treatment. Would recommend continuing IV antibiotics transition to oral antibiotics as indicated. Please reach out any questions or concerns
Nonweightbearing left upper extremity in splint
Antibiotics per primary team
Pain control
No plans for surgical intervention
Follow-up outpatient 7 to 10 days with either myself or Jt Nguyễn
Assessment
.
Dressing:
Clean, dry and intact.
Subjective
.
.:
Patient resting comfortably in chair. She reports that she has had continued improvement with regards to left hand pain.
Vital Signs and Labs
.
Vital Signs and Labs:
Lab Results
12/09/24 06:49
12/09/24 06:49
Temp Pulse Resp BP Pulse Ox
97.8 F 69 16 117/59 92
12/09/24 08:08 12/09/24 08:08 12/09/24 08:08 12/09/24 08:08 12/09/24 08:08
Physical Exam
-
Musculoskeletal left upper extremity
Skin intact, very minimal erythema noted over the dorsal aspect of hand and wrist with some mild swelling associated
Patient with some restricted active wrist flexion extension secondary to mild pain but continues to be able to actively extend and flex all fingers
Able to form near composite fist
Sensation tact light touch on this patient's distally
[2024-12-09] MEDS: RESTASIS 0.05% OPHTHALMIC EMULSION 1 DROPS BOTH EYES (14:07)
--- NOTE | 2024-12-09 15:04 | W.PN.ID1 ---
Date of Service
Date of Service: December 09, 2024
Today's Communication
Continue antibiotics.
Assessment / Plan
Left hand cat bite
Left hand tenosynovitis
Elevated CRP
GERD
HLD
Osteoarthritis
Hx DVT
Anxiety
Recommendations:
Continue with Unasyn (d#4)
Continue to monitor for clinical improvement.
Upper extremity elevation to control edema.
Continue with splinting.
Possible transition to oral therapy in the next 24 to 48 hours.
Chief Complaint
-: Cellulitis
Subjective / Review of Systems
Patient seen and examined. Reports ongoing, but diminished left wrist discomfort
Review of Systems: No Fever and No Chills
Vital Signs / Physical Exam
Vital Signs
Vital Signs
Temp Pulse Resp BP Pulse Ox
97.8 F 69 16 117/59 92
12/09/24 08:08 12/09/24 08:08 12/09/24 08:08 12/09/24 08:08 12/09/24 08:08
Physical Exam
Constitutional: No Acute Distress, Comfortable, Chronically Ill and Non-toxic
Cardiovascular: S1/S2; Negative S3/S4
Pulmonary: Non Labored
Gastrointestinal: Soft and Non Tender
Extremities: Edema (Left wrist; diminished) and Erythema (Left wrist; diminished)
Neurological: Awake and Alert
Objective Data
Lab Data
Lab Results
12/09/24 06:49
12/09/24 06:49
Estimated Creat Clear 40 ml/min 12/09/24 06:49
Total Bilirubin 0.7 mg/dl (0.2-1.3) 12/06/24 11:11
AST 41 U/L (14-36) H 12/06/24 11:11
ALT 31 U/L (0-35) 12/06/24 11:11
Alkaline Phosphatase 92 U/L (38-126) 12/06/24 11:11
C-Reactive Protein 53.00 mg/L (0.0-10.00) H 12/06/24 11:11
Most recent labs reviewed.
Imaging:
12/07/2024 MRI left upper extremity: There is findings of tenosynovitis with fluid and enhancement along the flexor digitorum superficialis and profundus tendons and which extends along the tendons of the third through fifth fingers, most pronounced
of the fifth finger were extends to the level of the proximal interphalangeal joint. Additionally there is mild tenosynovitis involving the extensor tendons of the third and fourth fingers.
[2024-12-09 16:31] VITALS: BP 104/56
[2024-12-09] MEDS: XARELTO 20 MG PO (18:08)
[2024-12-09] MEDS: ZOLOFT 100 MG PO (18:08)
[2024-12-09] MEDS: PEPCID 20 MG PO (21:26)
[2024-12-09] MEDS: XANAX 0.5 MG PO (21:26)
[2024-12-09 23:31] VITALS: BP 104/48
[2024-12-10] MEDS: UNASYN IV ×3 (00:03→11:26)
[2024-12-10] MEDS: RESTASIS 0.05% OPHTHALMIC EMULSION BOTH EYES (02:00)
[2024-12-10 07:10] VITALS: BP 114/60
[2024-12-10] MEDS: MYRBETRIQ EXTENDED RELEASE 50 MG PO (08:30)
[2024-12-10] MEDS: WELLBUTRIN XL (24 hour extended release) 150 MG PO (08:31)
--- NOTE | 2024-12-10 08:41 | CM ---
Addendum entered by Daniela Johnson 12/10/24 12:24:
Patient agreeable to [facility]
PLAN: Home, with [facility] when stable
to transport
Original Note:
Late entry: Patient seen at bedside yesterday
PT rec HH
discussed with patient [facility] - stated not sure she needs
notified liaison
discussed will place referral and she can decide
PLAN: will follow up with patient regarding [facility]
--- NOTE | 2024-12-10 08:48 | W.PN.HOSP.TC ---
Today's Communication/Plan
-
Patient transition to oral antibiotics
Assessment / Plan
Assessment / Plan
Assessment
This an 89 y/o female with phmx of GERD, HLD, DVT, Anxiety who presented to the ED on 12/06/2024 with redness and swelling of her left hand after possibly being bitten or scratched by her cat on 12/03/2024. Cat is up-to-date with vaccinations. She
reported no fevers or chills. She went to urgent care and was given Augmentin, had taken 3 doses. Symptoms swelling pain redness worsened prompting presentation to ED. In the hospital MRI showed tenosynovitis of the tendons of the third through 5th
fingers. Orthopedics and infectious disease were consulted. Orthopedics discussed with patient about surgery however patient was clinically improving with decreasing redness and pain. In discussion with orthopedics she decided to wait 1 more day
to be reevaluated. On reevaluation orthopedics was okay with patient continuing antibiotics with outpatient follow-up. Patient was transition to oral antibiotics, and was medically stable for discharge.
#LUE wound
# Cellulitis
Infected cat bite wound
Infectious disease consult
-Patient does not meet SIRS criteria
-MRI of hand 12/07 showed tenosynovitis of the tendons of the 3rd through 5th fingers without fluctuant collection
-Consulted Orthopedics, to reevaluate tomorrow 12/09
-Consulted PT/OT
-Continue IV Unasyn
-Continue PRN Tylenol for pain
- Transitioned to oral antibiotics to finish 14-day course
#Gastroesophageal reflux disease
-Continue home meds (famotidine)
#Hyperlipidemia
-Not currently taking any home medications
#Hx of DVT
-DVT in 2019 negative
-STOPPED home medications (Xarelto) in anticipation of possible orthopedic procedure/abcess drainage. Will resume if surgery is not indicated
#Anxiety/Depression
-Continue home medications (Sertraline, alprazolam, bupropion)
-Encouraged follow up with PCP
#Overactive Bladder
-Conitinue home meds (mirabegron)
DVT ppx
On Xarelto
CODE Status
Full code
Anticipated Discharge: Today
Subjective/Interval History
-
Patient was seen at bedside. She reports feeling better. She is eager to go home. Had some questions about wrapping arm and elevation. Also informed her about need to follow-up with orthopedics. Informed patient about the need to complete
antibiotic course. Date of Service: December 10, 2024
Objective Data
-
Vital Signs:
Vital Signs
Temp Pulse Resp BP Pulse Ox
98.1 F 76 14 114/60 95
12/10/24 07:10 12/10/24 07:10 12/10/24 07:10 12/10/24 07:10 12/10/24 08:34
I&O
12/09/24 12/10/24 12/11/24
06:59 06:59 06:59
Intake Total 1340 / 1340 2019
Balance 1340 / 1340 2019
Review of Systems
-
History Source: Patient
All other systems: Reviewed and negative
Constitutional: Reports No Symptoms; Denies Fever or Fatigue
EENT: Reports No Symptoms Reported
Respiratory: Reports No Symptoms; Denies Cough or Trouble Breathing
Cardiac: Reports No Symptoms; Denies Chest Pain or Palpitations
Abdomen/GI: Reports No Symptoms; Denies Abdominal Pain, Nausea, Vomiting or Diarrhea
Genitourinary: Reports No Symptoms; Denies Dysuria
Musculoskeletal: Reports Joint Pain (Left wrist) and Muscle Pain (Left arm)
Skin: Reports Other
Neuro: Reports No Symptoms; Denies Dizzy
Physical Exam
-
General: Well Developed, Well Nourished, No Apparent Distress and Comfortable
HEENT: Normocephalic and Atraumatic
Respiratory: Clear to Auscultation; Negative Wheezes or Crackles
Cardiac: Regular Rhythm and S1/S2; Negative Murmur
GI: Soft, Nontender, Nondistended and Normal Bowel Sounds
Musculoskeletal: No Clubbing, No Cyanosis, No Edema and Other (Left hand with full range of motion to flexion extension, left first digit full range of motion, mild tenderness with motion)
Skin: Warm and Other (Erythema on left arm, wrist reduced)
Neuro: Awake, Alert and Oriented
--- NOTE | 2024-12-10 12:16 | VNURNOTE ---
Home Health Liaison met with patient and spouse at bedside to discuss [facility] nurse/therapy, visits, schedule and homebound status. Patient is agreeable and understands that visits at home will be 2-3 x per week to assess and teach medical management.
Patient is aware that [facility] will contact them for start of care in 1-2 days after discharge from .
[facility] referral completed in [facility].
--- NOTE | 2024-12-10 13:55 | W.PN.ID1 ---
Date of Service
Date of Service: December 10, 2024
Today's Communication
Continue antibiotics.
Assessment / Plan
Left hand cat bite
Left hand tenosynovitis
Elevated CRP
GERD
HLD
Osteoarthritis
Hx DVT
Anxiety
Recommendations:
Continue with antibiotics (currently Unasyn d#5)
Clinical improvement noted.
At discharge, transition to Augmentin 875 mg p.o. twice daily for an additional 14 days of therapy.
Upper extremity elevation to control edema.
Continue with splinting.
����������������������������������������������������������
Chief Complaint
-: Cellulitis
Subjective / Review of Systems
Patient seen and examined. Reports hand and wrist is feeling improved. Increased mobility of the wrist area.
Review of Systems: No Fever and No Chills
Vital Signs / Physical Exam
Vital Signs
Vital Signs
Temp Pulse Resp BP Pulse Ox
98.1 F 76 14 114/60 95
12/10/24 07:10 12/10/24 07:10 12/10/24 07:10 12/10/24 07:10 12/10/24 08:34
Physical Exam
Constitutional: No Acute Distress and Comfortable
Cardiovascular: S1/S2; Negative S3/S4
Pulmonary: Non Labored
Gastrointestinal: Soft and Non Tender
Extremities: Edema (Left wrist; diminished) and Erythema (Left wrist; diminished)
Musculoskeletal: Other (Increased wrist ROM)
Neurological: Awake and Alert
Objective Data
Lab Data
Lab Results
12/09/24 06:49
12/09/24 06:49
Estimated Creat Clear 40 ml/min 12/09/24 06:49
Total Bilirubin 0.7 mg/dl (0.2-1.3) 12/06/24 11:11
AST 41 U/L (14-36) H 12/06/24 11:11
ALT 31 U/L (0-35) 12/06/24 11:11
Alkaline Phosphatase 92 U/L (38-126) 12/06/24 11:11
C-Reactive Protein 53.00 mg/L (0.0-10.00) H 12/06/24 11:11
Most recent labs reviewed.
Imaging:
12/07/2024 MRI left upper extremity: There is findings of tenosynovitis with fluid and enhancement along the flexor digitorum superficialis and profundus tendons and which extends along the tendons of the third through fifth fingers, most pronounced
of the fifth finger were extends to the level of the proximal interphalangeal joint. Additionally there is mild tenosynovitis involving the extensor tendons of the third and fourth fingers.
Care Review
Plan reviewed with: Physician (Hospitalist)
[2024-12-10] MEDS: RESTASIS 0.05% OPHTHALMIC EMULSION 1 DROPS BOTH EYES (14:12)
--- NOTE | 2024-12-10 14:57 | W.PN.UPDATE ---
Update Note
Progress Note Update
I have independently evaluated the patient at the bedside. I reviewed the case with the resident and agree with all documentation unless otherwise specified. Please refer to resident progress note for more detail
AFVSS this morning. Patient states she feels well, would like to go home. Cardiopulmonary exam unremarkable, left hand in surgical wrapping without any signs of drainage. Nontoxic appearance, no lymphadenopathy
Infected cat bite with tenosynovitis of the left hand. Discussed with ID, will transition from IV Unasyn to oral Augmentin to complete 14 more days of antibiotics. Follow-up with PCP in office. Continue with home Xarelto.
Discharge today with home care
[2024-12-10 15:00] VITALS: BP 110/62
--- NOTE | 2024-12-10 15:17 | W.DCSUMMARY ---
Documented by User: Dianne Santillan MD, Resident 12/10/24 15:24
Discharge Summary
Discharge Data
Date of Admission: 12/06/24
Date of Discharge: 12/10/24
-
Pending Results: No
Hospital Course
Discharging Physician : Dr. Ragland, Dr. Santillan
Disposition : Home
Primary care physician : Marv Mariscal
Principal Discharge diagnosis : Left upper extremity cellulitis
Chronic Discharge diagnosis :
GERD
hyperlipidemia
osteoarthritis
DVT
hiatal hernia
anxiety
esophageal stricture
Hospital Course :
This an 89 y/o female with phmx of GERD, HLD, DVT, Anxiety who presented to the ED on 12/06/2024 with redness and swelling of her left hand after possibly being bitten or scratched by her cat on 12/03/2024. Cat is up-to-date with vaccinations. On
presentation labs showed no leukocytosis with elevated CRP. She reported no fevers or chills. She went to urgent care and was given Augmentin, had taken 3 doses. Symptoms swelling pain redness worsened prompting presentation to ED. In the hospital
MRI showed tenosynovitis of the tendons of the third through 5th fingers. Orthopedics and infectious disease were consulted. Orthopedics discussed with patient about surgery however patient was clinically improving with decreasing redness and
pain. In discussion with orthopedics she decided to wait 1 more day to be reevaluated. On reevaluation orthopedics was okay with patient continuing antibiotics with outpatient follow-up. Labs stable on discharge. Patient was transition to oral
antibiotics, and was medically stable for discharge.
Important imaging findings :
MRI hand 12/07
IMPRESSION:
There is findings of tenosynovitis with fluid and enhancement along the flexor digitorum superficialis and profundus tendons and which extends along the tendons of the third through fifth fingers, most pronounced of the fifth finger were extends to
the level of the proximal interphalangeal joint. Additionally there is mild tenosynovitis involving the extensor tendons of the third and fourth fingers.
Procedure findings :
Discharge Plan
-
Patient Disposition: Home (Routine Discharge)
Discharge Diagnosis/Procedures: cellulitis of left upper extremity, bite wound on left upper extremity
Condition: Good
Diet: As tolerated
Activity: No restrictions
Driving Restrictions: As prior to admission
Activity Restrictions/Additional Instructions:
Return to the ED if you develop worsening pain, redness or worsening of the wound on your left hand, or new high-grade fever related to the previous cat bite.
Referrals:
Marv Mariscal MD [Family Provider, [facility]] - in less than 1 week
Additional Discharge Medication Instructions: Continue Augmentin 875-125 mg twice daily for 14 more days
Prescriptions:
New
amoxicillin-pot clavulanate 875-125 mg tablet
1 tab PO BID Qty: 28 0RF
Continued
sertraline 100 MG tablet
100 mg PO QPM
calcium carbonate-vitamin D3 [Oyster Shell Calcium-Vit D3] 500 MG tablet
500 mg PO DAILY
Xarelto 20 mg Tablet
20 mg PO QPM
cyanocobalamin (vitamin B-12) 1,000 mcg Tablet
1,000 mcg PO DAILY
therapeutic multivitamin Tablet
1 tab PO DAILY
alprazolam [Xanax] 0.5 mg Tablet
0.5 mg PO HS
cyclosporine [Restasis] 0.05 % Dropperette
1 drp BOTH EYES Q12H
bupropion HCl [Wellbutrin XL] 150 mg Tablet Extended Release 24 Hr
150 mg PO DAILY
PreserVision AREDS 2,148 mcg-113 mg-45 mg-17.4mg Tablet
1 tab PO BID
mirabegron [Myrbetriq] 50 mg Tablet Extended Release 24 Hr
50 mg PO DAILY
famotidine 40 mg Tablet
40 mg PO HS
estradiol 0.01 % (0.1 mg/gram) Cream
1 appful VAGINAL MOWEFR
cholecalciferol (vitamin D3) [Vitamin D3] 25 mcg (1,000 unit) Tablet
25 mcg PO DAILY
acetaminophen 325 mg Tablet
650 mg PO Q4HPRN PRN (Reason: mild pain/HARRIS/temp> 100.4F) Qty: 100 0RF
Discontinued
amoxicillin-pot clavulanate 875-125 mg tablet
1 tab PO BID
Rx Instructions:
for 7 days starting 12/05/24
Discharge Orders:
Discharge Patient (As Directed); Ordered 12/10/24
Ordered By: Dianne Santillan
Discharge Date and Time
Discharge Date/Time: 12/10/24 15:32
Print Language: CAMEROONIAN

Documented by User: Anirudh Ragland DO 12/10/24 17:05
Discharge Summary
Discharge Data
Date of Admission: 12/06/24
Date of Discharge: 12/10/24
Total time spent discharging patient (in min): 32
Discharge Plan
-
Patient Disposition: Home (Routine Discharge)
Discharge Diagnosis/Procedures: cellulitis of left upper extremity, bite wound on left upper extremity
Condition: Good
Diet: As tolerated
Activity: No restrictions
Driving Restrictions: As prior to admission
Activity Restrictions/Additional Instructions:
Return to the ED if you develop worsening pain, redness or worsening of the wound on your left hand, or new high-grade fever related to the previous cat bite.
Referrals:
Marv Mariscal MD [Family Provider, Family Practice] - in less than 1 week
Additional Discharge Medication Instructions: Continue Augmentin 875-125 mg twice daily for 14 more days
Prescriptions:
New
amoxicillin-pot clavulanate 875-125 mg tablet
1 tab PO BID Qty: 28 0RF
Continued
sertraline 100 MG tablet
100 mg PO QPM
calcium carbonate-vitamin D3 [Oyster Shell Calcium-Vit D3] 500 MG tablet
500 mg PO DAILY
Xarelto 20 mg Tablet
20 mg PO QPM
cyanocobalamin (vitamin B-12) 1,000 mcg Tablet
1,000 mcg PO DAILY
therapeutic multivitamin Tablet
1 tab PO DAILY
alprazolam [Xanax] 0.5 mg Tablet
0.5 mg PO HS
cyclosporine [Restasis] 0.05 % Dropperette
1 drp BOTH EYES Q12H
bupropion HCl [Wellbutrin XL] 150 mg Tablet Extended Release 24 Hr
150 mg PO DAILY
PreserVision AREDS 2,148 mcg-113 mg-45 mg-17.4mg Tablet
1 tab PO BID
mirabegron [Myrbetriq] 50 mg Tablet Extended Release 24 Hr
50 mg PO DAILY
famotidine 40 mg Tablet
40 mg PO HS
estradiol 0.01 % (0.1 mg/gram) Cream
1 appful VAGINAL MOWEFR
cholecalciferol (vitamin D3) [Vitamin D3] 25 mcg (1,000 unit) Tablet
25 mcg PO DAILY
acetaminophen 325 mg Tablet
650 mg PO Q4HPRN PRN (Reason: mild pain/HARRIS/temp> 100.4F) Qty: 100 0RF
Discontinued
amoxicillin-pot clavulanate 875-125 mg tablet
1 tab PO BID
Rx Instructions:
for 7 days starting 12/05/24
Discharge Orders:
Discharge Patient (As Directed); Ordered 12/10/24
Ordered By: Dianne Santillan
Discharge Date and Time
Discharge Date/Time: 12/10/24 15:32
Print Language: CAMEROONIAN
[2024-12-10 15:40] VITALS: BP 110/62
== END 2024-12-10 15:32 | disposition home health service (06) | DRG 603 ==
LOC: 3 WEST ACU 13:08
PROVIDERS: Physician Assistant; Student in an Organized Health Care Education/Training Program; ADMITTING PHYSICIAN Internal Medicine; ATTENDING PHYSICIAN Internal Medicine; CONSULT PHYSICIAN Internal Medicine Infectious Disease; CONSULT PHYSICIAN Orthopaedic Surgery; EMERGENCY PHYSICIAN Emergency Medicine; FAMILY PHYSICIAN Family Medicine
DX: L03.114 Cellulitis of left upper limb (principal); K21.9 Gastro-esophageal reflux disease without esophagitis; K44.9 Diaphragmatic hernia without obstruction or gangrene; F41.9 Anxiety disorder, unspecified; K22.2 Esophageal obstruction; M65.942 Unspecified synovitis and tenosynovitis, left hand; W55.01XA Bitten by cat, initial encounter; S61.452A Open bite of left hand, initial encounter; Z86.718 Personal history of other venous thrombosis and embolism; E78.00 Pure hypercholesterolemia, unspecified; Z87.891 Personal history of nicotine dependence; Z88.5 Allergy status to narcotic agent; Z88.6 Allergy status to analgesic agent; Z79.01 Long term (current) use of anticoagulants; Z79.899 Other long term (current) drug therapy
CPT/HCPCS: 73223; 80048; 80053; 85025; 85027; 86140; 96365; 97116; 97161; 97166; 99284; A9575